=== PATIENT | female | born 1990 | race Caucasian/White ===

== ENCOUNTER → 2020-02-17 10:09 | Outpatient (BNVA) | payer OTHER, SELFPAY | PROVIDERS: PCP Internal Medicine; Referring Provider Internal Medicine; Visit Provider Internal Medicine | DX: Z76.89 Persons encountering health services in other specified circumstances (principal) ==

== ENCOUNTER → 2020-04-15 16:01 | Outpatient (BNV) | payer OTHER, SELFPAY | PROVIDERS: PCP Internal Medicine; Visit Provider Internal Medicine | DX: D72.819 Decreased white blood cell count, unspecified (principal) | CPT/HCPCS: 99213 ==

== ENCOUNTER 2020-07-28 15:44 | Outpatient (REF) | payer OTHER, SELFPAY ==
[2020-07-28 17:08] LABS: Free T4 (Free Thyroxine) 1.07 ng/dL (0.71-1.85); Thyroid Stimulating Hormone 0.13 uIU/mL (0.32-4.0); Vitamin D 25-OH Total 17.3 ng/mL (>30)
== END 2020-07-28 15:45 | disposition home or self-care (01) ==
LOC: HO.LAB 15:44
PROVIDERS: PCP Internal Medicine; Visit Provider Internal Medicine
DX: E03.9 Hypothyroidism, unspecified (principal); E55.9 Vitamin D deficiency, unspecified
CPT/HCPCS: 36415; 82306; 84439; 84443

== ENCOUNTER → 2020-10-19 15:20 | Outpatient (BNVA) | payer OTHER, SELFPAY | PROVIDERS: PCP Internal Medicine; Visit Provider Internal Medicine ==

== ENCOUNTER 2020-11-03 15:50 | Outpatient (REF) | payer OTHER, SELFPAY ==
[2020-11-03 17:27] LABS: Thyroid Stimulating Hormone 1.02 uIU/mL (0.32-4.0); Vitamin D 25-OH Total 40.7 ng/mL (>30)
== END 2020-11-03 15:51 | disposition home or self-care (01) ==
LOC: HO.LAB 15:50
PROVIDERS: PCP Internal Medicine; Visit Provider Internal Medicine
DX: E03.9 Hypothyroidism, unspecified (principal); E55.9 Vitamin D deficiency, unspecified
CPT/HCPCS: 36415; 82306; 84439; 84443

== ENCOUNTER 2020-12-30 09:49 | Outpatient (REF) | payer OTHER, SELFPAY ==
--- NOTE | ~2020-12-30 | XR_ITS ---
EXAMINATION: XR CHEST CLINICAL INFORMATION: Shortness of breath COMPARISON: Previous chest x-ray January 2015 TECHNIQUE: 2 views of the chest were obtained. FINDINGS: No significant abnormality is noted involving the heart, lungs, mediastinum, bony thorax or soft tissues. XR/XR chest 2V IMPRESSION: Unremarkable examination.
[2020-12-30 10:06] LABS: MANUAL DIFF FLAG NO
[2020-12-30 10:28] LABS: Basophils Percent Auto 0.5 % (0-2); Eosinophils Absolute Auto 0.1 X10*3/uL (0.0-0.4); Eosinophils Percent Auto 3.2 % (0-4); Hematocrit 35.9 % (37-47); Hemoglobin 12.3 g/dl (12.0-16.0); Imm Gran Abs Auto 0.01 X10*3/uL (0.00-0.03); Imm Gran Pct Auto 0.3 % (0.0-0.4); Lymphocytes Absolute Auto 1.5 X10*3/uL (1.2-4.9); Lymphocytes Percent Auto 38.6 % (20-40); Mean Corpuscular HGB Conc 34.3 g/dl (31.0-35.0); Mean Corpuscular Hemoglobin 31.9 pg (27.0-33.0); Mean Platelet Volume 10.1 fL (9.4-12.3); Monocytes Absolute Auto 0.3 X10*3/uL (0.1-1.2); Monocytes Percent Auto 7.7 % (2-11); Neutrophils Absolute Auto 1.9 X10*3/uL (2.0-8.3); Neutrophils Percent Auto 49.7 % (45-73); Platelet Count 289 X10*3/uL (160-400); Red Blood Count 3.86 X10*6/uL (4.20-5.50); Red Cell Distribution Width 11.9 % (11.0-16.0); White Blood Count 3.8 X10*3/uL (4.8-10.8)
[2020-12-30 11:09] LABS: Free T4 (Free Thyroxine) 1.16 ng/dL (0.71-1.85); Thyroid Stimulating Hormone 1.52 uIU/mL (0.32-4.0)
== END 2020-12-30 09:50 | disposition home or self-care (01) ==
LOC: HO.XRAY 09:49
PROVIDERS: Internal Medicine; PCP Internal Medicine; Visit Provider Internal Medicine
DX: R06.02 Shortness of breath (principal); E03.9 Hypothyroidism, unspecified; D64.9 Anemia, unspecified
CPT/HCPCS: 36415; 71046; 84439; 84443; 85025

== ENCOUNTER 2021-03-02 10:36 | Outpatient (REF) | payer OTHER, SELFPAY ==
[2021-03-02 13:12] LABS: Influenza A PCR NEGATIVE (Negative); Influenza B PCR NEGATIVE (Negative); Resp Syncy Virus RNA Qual PCR NEGATIVE (Negative); SARS COV2 PCR INHOUSE NEGATIVE (Negative)
== END 2021-03-02 10:37 | disposition home or self-care (01) ==
LOC: HO.LAB 10:36
PROVIDERS: Visit Provider Nurse Practitioner Family
DX: Z20.822 Contact with and (suspected) exposure to COVID-19 (principal); R53.83 Other fatigue
CPT/HCPCS: 0241U

== ENCOUNTER 2021-03-21 14:28 | Outpatient (REF) | payer OTHER, SELFPAY ==
[2021-03-21 15:23] LABS: COVID-19 Test Positive (Negative); IDNOW Serial# 16C4AD1C
== END 2021-03-21 14:29 | disposition home or self-care (01) ==
LOC: HO.LAB 14:28
PROVIDERS: Visit Provider Internal Medicine
DX: Z20.822 Contact with and (suspected) exposure to COVID-19 (principal)
CPT/HCPCS: 87635; C9803

== ENCOUNTER 2021-03-31 14:12 | Outpatient (REF) | payer OTHER, SELFPAY | END 2021-03-31 14:13 | disposition home or self-care (01) | LOC: HO.LAB 14:12 | PROVIDERS: Internal Medicine; Visit Provider Internal Medicine | DX: Z20.822 Contact with and (suspected) exposure to COVID-19 (principal) | CPT/HCPCS: U0003; U0005 ==

== ENCOUNTER 2021-03-31 14:37 | Outpatient (REF) | payer OTHER, SELFPAY ==
[2021-03-31 14:53] LABS: MANUAL DIFF FLAG NO
[2021-03-31 15:07] LABS: Basophils Percent Auto 0.5 % (0-2); Eosinophils Absolute Auto 0.1 X10*3/uL (0.0-0.4); Eosinophils Percent Auto 1.5 % (0-4); Hematocrit 37.2 % (37.0-47.0); Hemoglobin 12.6 g/dl (12.0-16.0); Imm Gran Abs Auto 0.03 X10*3/uL (0.00-0.03); Imm Gran Pct Auto 0.5 % (0.0-0.4); Lymphocytes Absolute Auto 1.5 X10*3/uL (1.2-4.9); Lymphocytes Percent Auto 25.6 % (20-40); Mean Corpuscular HGB Conc 33.9 g/dl (31.0-35.0); Mean Corpuscular Volume 94.4 fL (80.0-98.0); Mean Platelet Volume 9.9 fL (9.4-12.3); Monocytes Absolute Auto 0.4 X10*3/uL (0.1-1.2); Monocytes Percent Auto 6.5 % (2-11); Neutrophils Absolute Auto 3.9 x10*3/uL (2.0-8.3); Neutrophils Percent Auto 65.4 % (45-73); Platelet Count 256 X10*3/uL (160-400); Red Blood Count 3.94 X10*6/uL (4.20-5.50); Red Cell Distribution Width 11.9 % (11.0-16.0)
[2021-03-31 15:38] LABS: Alanine Aminotransferase 18 U/L (0-31); Albumin Level 4.1 g/dL (3.5-5.0); Alkaline Phosphatase 51 U/L (39-117); Anion Gap 10 (12-20); Aspartate Amino Transferase 17 U/L (5-31); Bilirubin Total 1.3 mg/dL (0.0-1.0); Blood Urea Nitrogen 15 mg/dL (9-16); Calcium 9.5 mg/dL (8.4-10.2); Carbon Dioxide 26 mmol/L (22-29); Chloride 106 mmol/L (96-108); Estimated Glomerular Filt Rate > 60; Glucose Random 79 mg/dL (60-115); Potassium 4.9 mmol/L (3.3-5.1); Sodium 137 mmol/L (135-145); Total Protein 7.1 g/dL (6.5-8.0)
[2021-03-31 16:01] LABS: Thyroid Stimulating Hormone 2.15 uIU/mL (0.32-4.0)
[2021-03-31 16:07] LABS: Folate 17.1 ng/mL (> or = 4.0); Vitamin B12 348 pg/mL (200-900)
[2021-04-05 17:51] LABS: Vitamin D 25-OH, D2 <4 ng/mL; Vitamin D 25-OH, D3 21 ng/mL; Vitamin D 25-OH, Total 21 ng/mL (30-100)
== END 2021-03-31 14:38 | disposition home or self-care (01) ==
LOC: HO.LAB 14:37
PROVIDERS: PCP Internal Medicine; Visit Provider Internal Medicine
DX: E55.9 Vitamin D deficiency, unspecified (principal); E03.9 Hypothyroidism, unspecified; E53.8 Deficiency of other specified B group vitamins; D64.9 Anemia, unspecified; R53.83 Other fatigue
CPT/HCPCS: 36415; 80053; 82306; 82607; 82746; 84443; 85025

== ENCOUNTER 2021-07-13 17:57 | Outpatient (REF) | payer OTHER, SELFPAY ==
[2021-07-13 18:56] LABS: Influenza A PCR NEGATIVE (Negative); Influenza B PCR NEGATIVE (Negative); Resp Syncy Virus RNA Qual PCR NEGATIVE (Negative); SARS COV2 PCR INHOUSE NEGATIVE (Negative)
== END 2021-07-13 17:58 | disposition home or self-care (01) ==
LOC: HO.LNP 17:57
PROVIDERS: Visit Provider Internal Medicine
DX: Z20.822 Contact with and (suspected) exposure to COVID-19 (principal); R05.9 Cough, unspecified; R09.89 Other specified symptoms and signs involving the circulatory and respiratory systems
CPT/HCPCS: 0241U

== ENCOUNTER 2021-08-14 23:18 | Emergency (ER) | payer OTHER, SELFPAY ==
--- NOTE | ~2021-08-14 | XR_ITS ---
EXAMINATION: XR HAND, RIGHT CLINICAL INFORMATION: Hand injury COMPARISON: None TECHNIQUE: PA, lateral, and oblique views of the right hand. FINDINGS: The bones and soft tissues are normal. No fracture. Alignment is anatomic. Joint spaces are maintained. No erosions or soft tissue calcifications. XR/XR hand RT min 3V IMPRESSION: Normal right hand.
[2021-08-14 23:25] VITALS: BP 109/65; PULSE 76; RESP 18; TEMP 37; O2SAT 98; BMI 28.4
--- NOTE | 2021-08-15 01:10 | ED.EXTPRO ---
HPI - Extremity Problem General Chief complaint: Extremity Injury, Upper Stated complaint: right hand inj Time Seen by Provider: 08/15/21 01:10 Source: patient Mode of arrival: ambulatory Limitations: no limitations History of Present Illness HPI Narrative: A window fell on her hand 4 hours ago Complaint: extremity pain Onset (ago): hour(s) Pain Consistency: constant Location: right Associated symptoms: denies other symptoms Related Data Previous Rx's Medication Instructions Recorded levothyroxine 88 mcg tablet 88 mcg PO DAILY 30 days #30 tabs 04/07/21 amoxicillin 875 mg tablet 875 mg PO BID 7 days #14 tabs 07/13/21 Allergies Allergy/AdvReac Type Severity Reaction Status Date / Time No Known Allergies Allergy Verified 07/13/21 14:14 [No Known Allergies*] Review of Systems Constitutional: Constitutional: Reports no additional constitutional complaints Eyes: Eyes: Reports no additional eye complaints ENT: Denies dizziness Cardiovascular: Cardiovascular: Reports no additional cardiovascular complaints Respiratory: Respiratory: Reports as per HPI Gastrointestinal: Gastrointestinal: Reports no additional gastrointestinal complaints Genitourinary: Genitourinary: Reports no additional female genitourinary complaints Musculoskeletal: Musculoskeletal: Reports no additional musculoskeletal complaints Integumentary/Breasts: Skin/Breast: Denies rash Neurologic: Reports system reviewed and no additional complaints, except as documented, Denies dizziness and Denies Sensory deficit (Neuro) Psychiatric: Psychiatric: Denies anxiety PMFSH Past Medical History Surgical History No pertinent past surgical history Family History Family History Father No problems noted. Mother Diabetes Depression Sister Gestational diabetes Social History Social History Household Members: Children Housing: Apartment Are you a primary care assistant to a significant other at home: No Do you presently have visiting nurse or other home services: No Alcohol intake: current Alcohol intake frequency: holidays/special occasions only Alcohol type: wine and other Patient Tobacco Use Status: Former Tobacco user Tobacco use type: Cigarette e-Cigarette/Vaping Use: Never Used Second Hand Smoke Exposure: No service: No Current occupational status: employed Current occupation: [employer] Current occupational exposures/hazards: No Cognitive needs: No Hearing needs: No Vision needs: No Physical Exam Vital Signs: Vital Signs: Last Vital Signs Temp 98.6 F 08/14/21 23:25 Pulse 76 08/14/21 23:25 Resp 18 08/14/21 23:25 BP 109/65 08/14/21 23:25 Pulse Ox 98 08/14/21 23:25 O2 Del Method 08/14/21 23:25 BMI result Body Mass Index 28.4 Const: General: healthy appearing Nutritional Appearance: average body habitus Orientation/consciousness: oriented to person and patient oriented x3 Limitations: no limitations HEENT: Head: Yes normal to inspection Ears: external ears normal General nose exam: Normal external nose present Mouth: Normal oral and palatal mucosa present and oropharynx normal Throat: Yes posterior oropharynx normal Eyes: General: appearance normal, both eyes and all related structures Neck: Other: supple Neck: Yes normal visual inspection Chest: Chest palpation & inspection: normal inspection of the chest Resp: Auscultation: clear to auscultation bilaterally Cardio: Jugular venous distension: no JVD Rate: regular rate Rhythm: regular rhythm Heart sounds: S1 normal heart sound present and S2 normal heart sound present GI: Inspection: Yes normal to inspection Palpation (GI): Soft to palpation, nontender and No hepatosplenomegaly present Auscultation: normal bowel sounds : General: Yes no CVA tenderness Back/Spine/Pelvis: Back: no CVA tenderness Skin: General skin exam: no rashes or lesions noted Neuro: General: oriented to person and patient oriented x3 Cranial nerves: Yes CN's II-XII intact bilaterally Motor exam (neuro): 5/5 motor strength present throughout Sensory Exam: No Sensory deficit (Neuro) Extrem: Other: right hand with ecchymosis across Mcp, and 5th digit with ecchymosis and swelling Psych: Appearance: grossly normal Course Reevaluation(s) Reevaluation #1: short arm splint and sling applied Time: 01:25 MDM - Extremity (Nontraumatic) Imaging Data hand: Radiologist's impression: FINDINGS: The bones and soft tissues are normal. No fracture. Alignment is anatomic. Joint spaces are maintained. No erosions or soft tissue calcifications.? XR/XR hand RT min 3V IMPRESSION: Normal right hand. Discharge Plan Discharge Clinical Impression: Contusion of hand Patient Disposition: Home, Self-Care Instructions: Contusion in Adults (ED) Additional Instructions: ice 20 minutes off and on, tylenol and motrin for pain Prescriptions: No Action levothyroxine 88 mcg tablet 88 mcg PO DAILY 30 Days Qty: 30 3RF amoxicillin 875 mg tablet 875 mg PO BID 7 Days Qty: 14 0RF Referrals: Physician,Unknown J [Primary Care Provider] - 1 week Stand Alone Forms: Work/School Release
== END 2021-08-15 02:14 | disposition home or self-care (01) ==
PROVIDERS: Emergency Provider Emergency Medicine
DX: S60.221A Contusion of right hand, initial encounter (principal); W20.8XXA Other cause of strike by thrown, projected or falling object, initial encounter; Y93.89 Activity, other specified; Y92.019 Unspecified place in single-family (private) house as the place of occurrence of the external cause; Y99.9 Unspecified external cause status
CPT/HCPCS: 29125; 73130; 99283

== ENCOUNTER 2021-10-03 08:48 | Outpatient (REF) | payer OTHER, SELFPAY ==
[2021-10-03 10:40] LABS: Thyroid Stimulating Hormone 18.66 uIU/mL (0.32-4.0)
== END 2021-10-03 08:49 | disposition home or self-care (01) ==
LOC: HO.LAB 08:48
PROVIDERS: PCP Internal Medicine; Visit Provider Internal Medicine
DX: E03.9 Hypothyroidism, unspecified (principal)
CPT/HCPCS: 36415; 84443

== ENCOUNTER 2021-11-20 14:20 | Outpatient (REF) | payer OTHER, SELFPAY ==
[2021-11-20 15:11] LABS: MANUAL DIFF FLAG NO
[2021-11-20 15:31] LABS: Basophils Percent Auto 0.7 % (0-2); Eosinophils Absolute Auto 0.2 X10*3/uL (0.0-0.4); Hematocrit 36.8 % (37.0-47.0); Hemoglobin 12.4 g/dl (12.0-16.0); Imm Gran Abs Auto 0.02 X10*3/uL (0.00-0.03); Imm Gran Pct Auto 0.4 % (0.0-0.4); Lymphocytes Absolute Auto 1.2 X10*3/uL (1.2-4.9); Lymphocytes Percent Auto 26.7 % (20-40); Mean Corpuscular HGB Conc 33.7 g/dl (31.0-35.0); Mean Corpuscular Hemoglobin 32.3 pg (27.0-33.0); Mean Corpuscular Volume 95.8 fL (80.0-98.0); Mean Platelet Volume 10.2 fL (9.4-12.3); Monocytes Absolute Auto 0.3 X10*3/uL (0.1-1.2); Monocytes Percent Auto 5.9 % (2-11); Neutrophils Absolute Auto 2.8 x10*3/uL (2.0-8.3); Neutrophils Percent Auto 61.3 % (45-73); Platelet Count 266 X10*3/uL (160-400); Red Blood Count 3.84 X10*6/uL (4.20-5.50); White Blood Count 4.6 X10*3/uL (4.8-10.8)
== END 2021-11-20 14:21 | disposition home or self-care (01) ==
LOC: HO.LAB 14:20
PROVIDERS: PCP Internal Medicine; Visit Provider Internal Medicine Pulmonary Disease
DX: Z91.09 Other allergy status, other than to drugs and biological substances (principal); J45.909 Unspecified asthma, uncomplicated
CPT/HCPCS: 36415; 82785; 85025; 86003; 99202

== ENCOUNTER 2022-03-23 14:07 | Outpatient (REF) | payer OTHER, SELFPAY ==
[2022-03-24 04:31] LABS: CT PCR NOT DETECTED (Not Detect.); NG PCR NOT DETECTED (Not Detect.)
[2022-03-24 08:58] LABS: HBsAGNum1 0.27 S/CO (0.00-0.99); Hepatitis B Surface Antigen Negative (Negative); ~HepC Num1 0.07 S/CO (0.00-0.79); ~Hepatitis C Antibody Nonreactive (Nonreactive)
[2022-03-24 09:06] LABS: Syphilis Screen Nonreactive (Nonreactive)
[2022-03-24 09:42] LABS: HIV AB/AG Nonreactive (Nonreactive); HIV Num 1 0.06 S/CO (0.00-0.99)
[2022-03-24 13:31] LABS: BV Int Neg Control Negative (Negative); BV Int Pos Control Positive (Positive)
== END 2022-03-23 14:08 | disposition home or self-care (01) ==
LOC: HO.LAB 14:07
PROVIDERS: PCP Internal Medicine; Visit Provider Advanced Practice Midwife
DX: Z11.3 Encounter for screening for infections with a predominantly sexual mode of transmission (principal); Z87.42 Personal history of other diseases of the female genital tract; Z79.899 Other long term (current) drug therapy
CPT/HCPCS: 0353U; 36415; 86780; 86803; 87340; 87389; 87480; 87510; 87660

== ENCOUNTER 2022-03-23 15:07 | Outpatient (REF) | payer OTHER, SELFPAY ==
[2022-03-30 05:13] LABS: HPV mRNA E6/E7 rflx Not Detected (Not Detected)
== END 2022-03-23 15:08 | disposition home or self-care (01) ==
LOC: HO.LNP 15:07
PROVIDERS: Visit Provider Advanced Practice Midwife
DX: Z01.419 Encounter for gynecological examination (general) (routine) without abnormal findings (principal); Z11.3 Encounter for screening for infections with a predominantly sexual mode of transmission; Z87.42 Personal history of other diseases of the female genital tract
CPT/HCPCS: 87624; 88142

== ENCOUNTER 2022-03-30 11:09 | Outpatient (REF) | payer OTHER, SELFPAY ==
--- NOTE | 2022-03-30 12:08 | PFT_ITS ---
INDICATION: Dyspnea. SPIROMETRY: FEV1 to FVC of 82% with an FEV1 of 3.32 L, which is 118% predicted and FVC of 4.02 L which is 121% predicted. No significant response to bronchodilators noted. Maximum voluntary ventilation 116% predicted. LUNG VOLUMES: Total lung capacity 110% predicted with a residual volume of 77% predicted. DIFFUSION CAPACITY: DLCO of 114% predicted. Flow volume loop completely normal. INTERPRETATION: No obstructive nor restrictive ventilatory defects identified. No significant response to bronchodilators noted. Normal maximum voluntary ventilation. Lung volumes and diffusion capacity also within normal limits. It appears to demonstrate normal pulmonary mechanics. No clear explanation for the patient's symptoms of dyspnea based on this PFT. Shayne Barfield MD MR/MODL / [id number]
== END 2022-03-30 11:10 | disposition home or self-care (01) ==
LOC: HO.RESP 11:09
PROVIDERS: PCP Internal Medicine; Visit Provider Internal Medicine Pulmonary Disease
DX: J45.909 Unspecified asthma, uncomplicated (principal)
CPT/HCPCS: 94060; 94727; 94729

== ENCOUNTER → 2022-04-17 15:44 | Outpatient (BNVA) | payer OTHER, SELFPAY | PROVIDERS: PCP Internal Medicine; Visit Provider Internal Medicine Pulmonary Disease | DX: J45.909 Unspecified asthma, uncomplicated (principal); Z91.09 Other allergy status, other than to drugs and biological substances; Z79.899 Other long term (current) drug therapy | CPT/HCPCS: 99212 ==

== ENCOUNTER 2022-06-28 09:31 | Outpatient (REF) | payer OTHER, SELFPAY ==
[2022-06-28 15:01] LABS: Influenza A PCR NEGATIVE (Negative); Influenza B PCR NEGATIVE (Negative); Resp Syncy Virus RNA Qual PCR NEGATIVE (Negative); SARS COV2 PCR INHOUSE NEGATIVE (Negative)
== END 2022-06-28 09:32 | disposition home or self-care (01) ==
LOC: HO.LAB 09:31
PROVIDERS: Visit Provider Internal Medicine
DX: R09.89 Other specified symptoms and signs involving the circulatory and respiratory systems (principal); Z20.822 Contact with and (suspected) exposure to COVID-19
CPT/HCPCS: 0241U

== ENCOUNTER 2022-08-03 07:37 | Outpatient (REF) | payer OTHER, SELFPAY ==
[2022-08-03 10:14] LABS: Vitamin B12 464 pg/mL (200-900); Vitamin D 25-OH Total 14.7 ng/mL (>30)
[2022-08-03 10:15] LABS: Thyroid Stimulating Hormone > 100.00 uIU/mL (0.32-4.0)
== END 2022-08-03 07:38 | disposition home or self-care (01) ==
LOC: HO.LAB 07:37
PROVIDERS: PCP Internal Medicine; Visit Provider Internal Medicine
DX: E03.9 Hypothyroidism, unspecified (principal)
CPT/HCPCS: 36415; 82306; 82607; 82746; 84443

== ENCOUNTER 2022-10-14 00:46 | Emergency (ER) | payer OTHER, SELFPAY ==
[2022-10-14 00:56] VITALS: BP 117/76; PULSE 79; RESP 17; TEMP 36.6; O2SAT 98; BMI 35.2
[2022-10-14 01:59] LABS: MANUAL DIFF FLAG NO
[2022-10-14 02:00] LABS: Basophils Percent Auto 0.7 % (0-2); Eosinophils Absolute Auto 0.2 X10*3/uL (0.0-0.4); Eosinophils Percent Auto 3.8 % (0-4); Hematocrit 35.3 % (37.0-47.0); Imm Gran Abs Auto 0.03 X10*3/uL (0.00-0.03); Imm Gran Pct Auto 0.5 % (0.0-0.4); Lymphocytes Absolute Auto 1.8 X10*3/uL (1.2-4.9); Lymphocytes Percent Auto 31.1 % (20-40); Mean Corpuscular Hemoglobin 32.7 pg (27.0-33.0); Mean Corpuscular Volume 96.2 fL (80.0-98.0); Monocytes Absolute Auto 0.4 X10*3/uL (0.1-1.2); Monocytes Percent Auto 7.1 % (2-11); Neutrophils Absolute Auto 3.3 x10*3/uL (2.0-8.3); Neutrophils Percent Auto 56.8 % (45-73); Platelet Count 287 X10*3/uL (160-400); Red Blood Count 3.67 X10*6/uL (4.20-5.50); Red Cell Distribution Width 11.9 % (11.0-16.0); White Blood Count 5.8 X10*3/uL (4.8-10.8)
[2022-10-14 02:13] LABS: Alanine Aminotransferase 15 U/L (0-31); Albumin Level 3.7 g/dL (3.5-5.0); Alkaline Phosphatase 53 U/L (39-117); Anion Gap 13 (12-20); Aspartate Amino Transferase 15 U/L (5-31); Bilirubin Total 0.4 mg/dL (0.0-1.0); Blood Urea Nitrogen 15 mg/dL (9-16); Calcium 8.8 mg/dL (8.4-10.2); Carbon Dioxide 20 mmol/L (22-29); Chloride 111 mmol/L (96-108); Creatinine Clr Calc Pharmacy 118.7; Estimated Glomerular Filt Rate > 60; Glucose Random 89 mg/dL (60-115); Sodium 140 mmol/L (135-145); Total Protein 6.6 g/dL (6.5-8.0)
--- NOTE | 2022-10-14 06:30 | ED.GENADULT ---
HPI - General Adult General Chief complaint: General Medical Stated complaint: arm numbness Time Seen by Provider: 10/14/22 06:30 Source: patient Mode of arrival: ambulatory Limitations: no limitations History of Present Illness HPI narrative: 32 yo female with history of asthma, restless leg syndrome, environmental allergies who presents to the ER for evaluation of acute onset of left forearm pain that started when she woke up from a nap around 9:30 last night. She states the pain came on gradually, continued to worsen and radiate proximally to the upper arm. She then developed pain in the right arm and forearm as well. She states the pain continues to worsen in her bilateral arms and started to develop numbness and some swelling in the left forearm and right hand. She came to the hospital just after midnight for evaluation. She states since arriving to the ER the pain and numbness have improved but not resolved. 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 She has never had pain or numbness in her arms like this before. She denies any LE pains, chest pain, N/V/D, abdominal pain, fever, chills, rashes. She continues to have pain with movement of her arms and they are tender to touch. MD complaint: bilateral arm pain and numbness Onset (ago): hour(s) Location: left, right and upper extremity Radiation: proximal Severity: severe Quality: sharp Pain Consistency: other (improving) Relieving factors: rest Exacerbating factors: movement Associated symptoms: denies other symptoms Treatments prior to arrival: none Related Data Previous Rx's Medication Instructions Recorded cholecalciferol (vitamin D3) 50 50 mcg PO DAILY 90 days #90 caps 08/16/22 mcg (2,000 unit) capsule levothyroxine 88 mcg tablet 88 mcg PO DAILY 90 days #90 tabs 08/16/22 valacyclovir 1 gram tablet 1,000 mg PO Q8H 7 days #21 tabs 09/05/22 cyclobenzaprine 10 mg tablet 10 mg PO TID PRN muscle spasm #14 10/14/22 tabs naproxen 500 mg tablet 500 mg PO BID PRN pain #20 tabs 10/14/22 Allergies Allergy/AdvReac Type Severity Reaction Status Date / Time No Known Allergies Allergy Verified 10/14/22 00:56 [No Known Allergies*] Review of Systems Review of Systems: Yes all other systems are reviewed and are negative [facility] Past Medical History Medical History COVID-19 Hypothyroidism Nausea Restless leg syndrome Shortness of breath Vitamin B 12 deficiency Vitamin D deficiency Surgical History No pertinent past surgical history Family History Family History Father No problems noted. Mother Diabetes Depression Sister Gestational diabetes Maternal Grandmother Colon cancer Maternal Grandfather Colon cancer Social History Social History Household Members: Children Housing: Apartment Are you a primary adult daycare coordinator to a significant other at home: No Do you presently have visiting nurse or other home services: No Alcohol intake: current Alcohol intake frequency: holidays/special occasions only Alcohol type: wine and other Patient Tobacco Use Status: Former Tobacco user Tobacco use type: Cigarette e-Cigarette/Vaping Use: Never Used Second Hand Smoke Exposure: No Advance Directives: No Advance Directives Information Provided: No service: No Current occupational status: employed Current occupation: [employer] Current occupational exposures/hazards: No Cognitive needs: No Hearing needs: No Vision needs: Yes Physical Exam ED Vital Signs: Vital Signs - 24 hr 10/14/22 00:56 Temperature 97.8 F Pulse Rate 79 Respiratory Rate 17 Blood Pressure 117/76 Pulse Oximetry 98 Oxygen Delivery Method Room Air BMI result Body Mass Index 35.2 Appearance: Alert. Oriented X3. No acute distress. Head: normocephalic, atraumatic. Eyes: Pupils equal, round and reactive to light. ENT: Pharynx normal. No tonsillar swelling or exudate. Neck: Normal inspection. Neck supple. CVS: Normal heart rate and rhythm. Pulses normal. Respiratory: No respiratory distress. Breath sounds normal. Abdomen: Soft and nontender. +BS x4 Skin: Skin warm and dry. Normal skin color. Normal skin turgor. No rashes. Extremities: No lower extremity edema. No joint swelling. Normal inspection of bilateral upper extremities, soft tissue tenderness of the bilateral forearms and upper arms. no notable swelling or skin changes. compartments are soft and compressible throughout. NV intact distally. equal hand grasp bilaterally. pain with passive and active ROM of the shoulder and elbows. Neuro/psych: Oriented X 3. No motor deficit. No sensory deficit. CN II-XII intact. Normal speech and cognition. 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 The pain and numbness have improved but not completely resolved. Her physical exam is revealing for soft tissue tenderness, no sensory deficits or motor deficits. Her lab workup is unremarkable. Normal CPK. Normal electrolytes. Suspect her pain and symptoms are due to overuse injury, perhaps some transient swelling in the muscles compressing the nerves causing the numbness. Neurologically nonfocal at this time. She was given NSAID and muscle relaxer. At this time she is stable for discharge home with rest, NSAIDs, muscle relaxers. She will follow-up with her primary care doctor as needed. Return precautions discussed. Stable for discharge home Differential Diagnosis Differential Diagnoses: The differential diagnosis associated with the presentation includes muscle strain/spasm, overuse injury, rhabdomyolysis, myositis, cervical radiculopathy Lab Data [facility] Lab Attestation statement: I reviewed the patient's lab results. no signficant metabolic derrangement, lytes normal 10/14/22 01:54 10/14/22 01:54 Labs: Lab Results 10/14/22 10/14/22 Range/Units 01:54 01:54 WBC 5.8 (4.8-10.8) X10*3/uL RBC 3.67 L (4.20-5.50) X10*6/uL Hgb 12.0 (12.0-16.0) g/dl Hct 35.3 L (37.0-47.0) % MCV 96.2 (80.0-98.0) fL MCH 32.7 (27.0-33.0) pg MCHC 34.0 (31.0-35.0) g/dl RDW 11.9 (11.0-16.0) % Plt Count 287 (160-400) X10*3/uL MPV 10.0 (9.4-12.3) fL Immature Gran % (Auto) 0.5 H (0.0-0.4) % Neut % (Auto) 56.8 (45-73) % Lymph % (Auto) 31.1 (20-40) % Antelope % (Auto) 7.1 (2-11) % Eos % (Auto) 3.8 (0-4) % Baso % (Auto) 0.7 (0-2) % Lymph # (Auto) 1.8 (1.2-4.9) X10*3/uL Antelope # (Auto) 0.4 (0.1-1.2) X10*3/uL Eos # (Auto) 0.2 (0.0-0.4) X10*3/uL Baso # (Auto) 0.0 (0.0-0.2) X10*3/uL Abs Immat Gran (auto) 0.03 (0.00-0.03) X10*3/uL Absolute Neuts (auto) 3.3 (2.0-8.3) x10*3/uL Absolute Nucleated RBC 0.000 (0.0-0.012) X10*3/uL Nucleated RBC % (auto) 0.0 (0.0-0.2) /100WBC Sodium 140 (135-145) mmol/L Potassium 4.0 (3.3-5.1) mmol/L Chloride 111 H (96-108) mmol/L Carbon Dioxide 20 L (22-29) mmol/L Anion Gap 13 (12-20) BUN 15 (9-16) mg/dL Creatinine 0.65 (0.5-1.4) mg/dL Estim Creat Clear Calc 118.7 Estimated GFR > 60 Random Glucose 89 (60-115) mg/dL Calcium 8.8 D (8.4-10.2) mg/dL Total Bilirubin 0.4 (0.0-1.0) mg/dL AST 15 (5-31) U/L ALT 15 (0-31) U/L Alkaline Phosphatase 53 (39-117) U/L Total Creatine Kinase 102 (26-140) U/L Total Protein 6.6 (6.5-8.0) g/dL Albumin 3.7 (3.5-5.0) g/dL External Record Review External record reviewed: Prior outpatient labs Tests considered The following testing was considered but not selected: Considered imaging today however given physical exam findings is deferred for now Prescription Management I considered prescription management with: Pain Medication Critical Care Time Critical Care Time Critical Care Time: No Discharge Plan Discharge Clinical Impression: Myalgia Patient Disposition: Home, Self-Care Instructions: Musculoskeletal Pain (ED) Additional Instructions: Your lab workup today was reassuring. Your pain is most likely muscular from overuse and rowing Recommend rest, no strenuous activity. Use ice or heat (which ever feels better) and elevate when possible Take the prescribed anti-inflammatories and muscle relaxers as directed Stay hydrated No rowing until all of your symptoms are completely resolved. If you develop new or worsening symptoms call 911 or come back to the ER for further evaluation. Prescriptions: New cyclobenzaprine 10 mg tablet 10 mg PO TID PRN (Reason: muscle spasm) Qty: 14 0RF naproxen 500 mg tablet 500 mg PO BID PRN (Reason: pain) Qty: 20 0RF No Action valacyclovir 1 gram tablet 1,000 mg PO Q8H 7 Days Qty: 21 0RF levothyroxine 88 mcg tablet 88 mcg PO DAILY 90 Days Qty: 90 0RF cholecalciferol (vitamin D3) 50 mcg (2,000 unit) capsule 50 mcg PO DAILY 90 Days Qty: 90 0RF Referrals: Melody Rowan MD [Primary Care Provider] - Stand Alone Forms: Work/School Release
[2022-10-14] MEDS: Ibuprofen 600 MG TABLET PO (07:08)
[2022-10-14] MEDS: Cyclobenzaprine HCl 10 MG TABLET PO (07:08)
== END 2022-10-14 07:32 | disposition home or self-care (01) ==
PROVIDERS: Physician Assistant; Emergency Provider Emergency Medicine Emergency Medical Services; PCP Internal Medicine
DX: M79.10 Myalgia, unspecified site (principal); M79.602 Pain in left arm; M79.601 Pain in right arm; R20.0 Anesthesia of skin; Z87.891 Personal history of nicotine dependence; Z79.899 Other long term (current) drug therapy
CPT/HCPCS: 36415; 80053; 82550; 85025; 99283

== ENCOUNTER 2022-11-01 15:22 | Outpatient (AMB) | payer OTHER, SELFPAY ==
--- NOTE | 2022-11-01 15:24 | A.OFFVIS_ITS ---
Intake Vital Signs 11/01/22 15:25 Height 5 ft Weight 186 lb 8.177 oz BMI 36.4 BP 102/62 Blood Pressure Location Rt brachial Position Sitting Pulse 83 Pulse Source Pulse Oximeter Intake Visit Reasons: hypothyroidism/ Intake Note: Patient present today for Hypothyroidism office visit. Prior Dr. 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 First diagnosed with Hypothyroidism many years ago. Did have labs completed 08/19/17 with TSH 60.87 with TGAb positive at 25 and TPO antibodies positive at 291. She was started on thyroid hormone Levothyroxine 150 mcg PO daily. Since beginning the medication her labs have fluctuated drastically due to poor compliance. After our initial visit she began taking the medication daily, first thing in the morning on an empty stomach. Labs were repeated 6 weeks later with TSH suppressed to 0.01. Her dose was then decreased to 112 mcg PO daily. Labs were repeated and TSH was relatively unchanged at 0.02. Her dose was then decreased to 100 mcg PO daily, and further to 88 mcg daily, which she remains on now. She has been noncompliant with levothyroxine She did not have her labs repeated. Biotin Does use Biotin almost daily. Stops Biotin for at least 1 week prior to lab draws. No recent pertinent labs. [facility] Medical History COVID-19 Hypothyroidism Nausea Restless leg syndrome Shortness of breath Vitamin B 12 deficiency Vitamin D deficiency Surgical History No pertinent past surgical history Family History Father No problems noted. Mother Diabetes Depression Sister Gestational diabetes Maternal Grandmother Colon cancer Maternal Grandfather Colon cancer Social History Household Members: Children Housing: Apartment Are you a primary mall plant caretaker to a significant other at home: No Do you presently have visiting nurse or other home services: No Alcohol intake: current Alcohol intake frequency: holidays/special occasions only Alcohol type: wine and other Patient Tobacco Use Status: Former Tobacco user Tobacco use type: Cigarette e-Cigarette/Vaping Use: Never Used Second Hand Smoke Exposure: No service: No Current occupational status: employed Current occupation: [employer] Current occupational exposures/hazards: No Cognitive needs: No Hearing needs: No Vision needs: Yes Female Reproductive History Menstrual Age of Menarche: 14 Physical Exam Vital Signs: Last Vital Signs Pulse 83 11/01/22 15:25 BP 102/62 11/01/22 15:25 BMI result Body Mass Index 36.4 Assessment & Plan Assessment & Plan (1) Hypothyroidism: Code(s): E03.9 - Hypothyroidism, unspecified Qualifiers: Hypothyroidism type: acquired Qualified Code(s): E03.9 - Hypothyroidism, unspecified Plan: This is a 32-year-old female with a history of hypothyroidism being treated with 80 mcg levothyroxine found recently to have a very elevated TSH.Has been noncompliant with levothyroxine Plan is to stressed compliance with levothyroxine and switch levothyroxine to branded Synthroid 88 mcg q.d. at patient's request. Recheck TSH and free T4 in 6 weeks time adjust Synthroid accordingly Orders: Orders Free T4 (Free Thyroxine) 6 Weeks E03.9 - Hypothyroidism, unspecified Thyroid Stimulating Hormone 6 Weeks E03.9 - Hypothyroidism, unspecified Medications: New Synthroid (levothyroxine) 88 mcg PO DAILY 30 tabs 5RF NS Discontinued levothyroxine Discontinued Reason: Doctor's Order 88 mcg PO DAILY 90 days 90 tabs 0RF E03.9 - Hypothyroidism, unspecified Coding Level of Care Code Est Pt Level 3 (57556) Diagnoses Hypothyroidism E03.9 Hypothyroidism type: acquired
[2022-11-01 15:25] VITALS: BP 102/62; PULSE 83; BMI 36.4
== END 2022-11-01 15:52 | disposition home or self-care (01) ==
PROVIDERS: PCP Internal Medicine; Visit Provider Internal Medicine Endocrinology, Diabetes & Metabolism
DX: E03.9 Hypothyroidism, unspecified (principal)
CPT/HCPCS: 99213

== ENCOUNTER → 2022-11-01 15:22 | Outpatient (BNVA) | payer OTHER, SELFPAY | PROVIDERS: PCP Internal Medicine; Visit Provider Internal Medicine Endocrinology, Diabetes & Metabolism | DX: E03.9 Hypothyroidism, unspecified (principal); Z79.899 Other long term (current) drug therapy | CPT/HCPCS: 99212 ==

== ENCOUNTER 2022-12-24 06:29 | Outpatient (REF) | payer OTHER, SELFPAY ==
[2022-12-24 08:10] LABS: TSH reflex Free T4 9.13 uIU/mL (0.32-4.0)
[2022-12-24 08:11] LABS: Free T4 (Free Thyroxine) 0.79 ng/dL (0.71-1.85); Thyroid Stimulating Hormone 8.99 uIU/mL (0.32-4.0)
== END 2022-12-24 06:30 | disposition home or self-care (01) ==
LOC: HO.LAB 06:29
PROVIDERS: Absent Provider Nurse Practitioner Family; PCP Internal Medicine; Visit Provider Internal Medicine Endocrinology, Diabetes & Metabolism
DX: E03.9 Hypothyroidism, unspecified (principal); E55.9 Vitamin D deficiency, unspecified
CPT/HCPCS: 36415; 82306; 84439; 84443

== ENCOUNTER 2023-01-28 08:32 | Emergency (ER) | payer OTHER, SELFPAY ==
[2023-01-28 08:43] VITALS: BP 97/66; PULSE 86; RESP 14; TEMP 37.4; O2SAT 98; BMI 35.7
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
[2023-01-28] MEDS: Cyclobenzaprine HCl 5 MG TABLET PO (10:08)
[2023-01-28] MEDS: Ketorolac Tromethamine 15 MG/ML VIAL IM (10:08)
== END 2023-01-28 10:10 | disposition home or self-care (01) ==
PROVIDERS: Emergency Provider Emergency Medicine; PCP Internal Medicine
DX: Z04.1 Encounter for examination and observation following transport accident (principal); R51.9 Headache, unspecified; M54.50 Low back pain, unspecified; M79.651 Pain in right thigh
CPT/HCPCS: 96372; 99283; 99284; J1885

== ENCOUNTER 2023-01-30 14:26 | Outpatient (AMB) | payer OTHER, SELFPAY ==
--- NOTE | 2023-01-30 14:27 | MHC.PC.OV ---
Vital Signs 01/30/23 14:28 Height 5 ft Weight 189 lb BMI 36.9 BP 110/78 Blood Pressure Location Lt brachial Position Sitting Intake Visit Reasons: PE Intake Note: Patient here for a physical exam Sports Analyst Required: No Accompanied by: Self / Same As Patient Allergies No Known Allergies [No Known Allergies*] Allergy (Verified 01/30/23 14:45) Medication List - Last Reconciled 01/30/23 by Melody Carrizales MD cholecalciferol (vitamin D3) 50 mcg PO DAILY cyclobenzaprine 5 mg PO TID PRN 7 days Synthroid (levothyroxine) 100 mcg PO DAILY NS Tobacco use date assessed: 08/16/22 Dental Screening Dental Screen Date: 01/30/23 Did you have a dental visit in the last 12 months?: No Did you have a dental problem in the last 6 months where you did not have access to dental care?: No Was dental information given to patient?: Patient has dentist HPI HPI Comments History of Present Illness Details This is a 32-year-old female that comes for her physical exam. Last Pap smear was 2022 and was normal. No chest pain or shortness of breath. Labs were ordered. [facility] Medical History Hx of abnormal cervical Pap smear Screen for sexually transmitted diseases Well woman exam with routine gynecological exam Cervical cancer screening Obesity (BMI 30.0-34.9) Adult general medical exam Injury of right hand Right hand pain Chills Myalgia Sinus pain Chest congestion Cough Vomiting Fatigue COVID-19 Nausea Restless leg syndrome Shortness of breath Vitamin D deficiency Hypothyroidism Vitamin B 12 deficiency Surgical History No pertinent past surgical history Family History Father Essential hypertension Mother Diabetes Depression Sister Gestational diabetes Maternal Grandmother Colon cancer Maternal Grandfather Colon cancer Maternal Aunt Breast cancer Social History Household Members: Children Housing: Apartment Are you a primary intensive care unit registered nurse to a significant other at home: No Do you presently have visiting nurse or other home services: No Alcohol intake: current Alcohol intake frequency: holidays/special occasions only Alcohol type: wine and other Patient Tobacco Use Status: Former Tobacco user Tobacco use type: Cigarette e-Cigarette/Vaping Use: Never Used Second Hand Smoke Exposure: No service: No Current occupational status: employed Current occupation: [employer] Current occupational exposures/hazards: No Cognitive needs: No Hearing needs: No Vision needs: Yes Female Reproductive History Menstrual Age of Menarche: 14 Questionnaire Thrive Questionnaire Date Thrive assessed: 08/16/22 KATIE-7 AMB Questionnaire KATIE-7 Date KATIE - 7 assessed: 08/16/22 Source: Developed by Drs. Alex Johnson, Hanh Clark, Marcus Pedro and colleagues, with an educational liborio from [employer]. Review of Systems Const All systems reviewed & are unremarkable except as noted in HPI and below Eyes Reports no additional complaints, Denies change in vision and Denies other visual disturbances Card Denies chest pain at rest, Denies chest pain with activity, Denies edema, Denies irregular heart rhythm, Denies claudication, Denies dyspnea, Denies dyspnea on exertion, Denies orthopnea, Denies paroxysmal nocturnal dyspnea and Denies slow heart rate Resp Denies cough, Denies dyspnea and Denies dyspnea on exertion GI Denies abdominal pain, Denies change in bowel habits, Denies excessive flatus, Denies nausea and Denies vomiting Denies urinary incontinence, Denies urinary hesitancy and Denies urinary urgency Musc Denies abnormal gait, Denies atrophy, Denies deformity and Denies limited range of motion Skin/Breast Denies bleeding lesions, Denies changing lesions and Denies rash Neuro Denies abnormal gait and Denies lack of coordination Physical exam (Primary Care) Vital Signs: Last Vital Signs BP 110/78 01/30/23 14:28 BMI result Body Mass Index 36.9 Tobacco/Smoking Status: Tobacco use Status Tobacco use date assessed 08/16/22 01/30/23 14:29 Patient Tobacco Use Status Former Tobacco user 01/30/23 14:29 Tobacco use type Cigarette 01/30/23 14:29 e-Cigarette/Vaping Use Never Used 01/30/23 14:29 Thrive Assessment: Date of Thrive Assessment Date Thrive assessed 08/16/22 01/30/23 14:29 Const Orientation/consciousness: patient oriented x3 HENMT Head: Yes normal to inspection, Yes normocephalic and Yes atraumatic Ears: external ears normal Eyes General: appearance normal, both eyes and all related structures Eyelids: Yes eyelids normal Conjunctivae: conjunctivae normal Neck Neck: Yes normal visual inspection and Yes supple Resp Effort & Inspection: normal respiratory effort Auscultation: clear to auscultation bilaterally Cardio Jugular venous distension: no JVD Rate: regular rate Rhythm: regular rhythm Heart sounds: S1 normal heart sound present and S2 normal heart sound present GI Inspection: Yes normal to inspection Palpation (GI): Soft to palpation and nontender Auscultation: normal bowel sounds Skin General skin exam: no rashes or lesions noted Neuro General: patient oriented x3 and no focal motor deficits Extrem General: Yes full ROM Psych Appearance: grossly normal Office Procedures Flu Questionnaire Does the patient have a severe egg allergy?: No Immunizations flu vacc [id number] 6mos up(PF) 60 mcg(15 mcgx4)/0.5 mL IM syringe Performing Provider: Melody Carrizales MD [facility] Documented (not given) by: RAMÓN Rinaldi on 01/30/23 14:57 Reason Not Given: Not Given Assessment and Plan Assessment & Plan (1) Physical exam: Code(s): Z00.00 - Encounter for general adult medical examination without abnormal findings Plan: Repeat in a year. Orders: Orders Comprehensive [place]. Panel Fast Today Z00.00 - Encounter for general adult medical examination without abnormal findings Lipid Panel Today Z00.00 - Encounter for general adult medical examination without abnormal findings Influenza [id number] Immunization Today Z23 - Encounter for immunization Vitamin D 25-OH Total Today E55.9 - Vitamin D deficiency, unspecified Referrals Speech and Hearing Referral H91.90 - Unspecified hearing loss, unspecified ear Ophthalmology Referral H53.8 - Other visual disturbances Coding Level of Care Code Est Pt Prev Care 18-39y(92478) Diagnoses Physical exam Z00.00 Time Spent (min) 32
[2023-01-30 14:28] VITALS: BP 110/78; BMI 36.9
== END 2023-01-30 14:54 | disposition home or self-care (01) ==
PROVIDERS: Visit Provider Internal Medicine
DX: Z00.00 Encounter for general adult medical examination without abnormal findings (principal)
CPT/HCPCS: 99395

== ENCOUNTER 2023-02-22 07:18 | Outpatient (REF) | payer OTHER, SELFPAY ==
[2023-02-22 09:36] LABS: Alanine Aminotransferase 18 U/L (0-31); Albumin Level 3.7 g/dL (3.5-5.0); Alkaline Phosphatase 59 U/L (39-117); Anion Gap 10 (12-20); Aspartate Amino Transferase 18 U/L (5-31); Bilirubin Total 0.4 mg/dL (0.0-1.0); Blood Urea Nitrogen 12 mg/dL (9-16); Calcium 8.9 mg/dL (8.4-10.2); Carbon Dioxide 24 mmol/L (22-29); Chloride 110 mmol/L (96-108); Cholesterol 160 mg/dL (<200); Estimated Glomerular Filt Rate > 60; Glucose Fasting 104 mg/dL (60-99); HDL Cholesterol 57 mg/dL (>40); LDL Cholesterol Calculated 92 mg/dL (<100); Potassium 4.5 mmol/L (3.3-5.1); Sodium 139 mmol/L (135-145); Total Protein 6.8 g/dL (6.5-8.0); Triglycerides 55 mg/dL (<150)
[2023-02-22 10:02] LABS: Vitamin D 25-OH Total 17.2 ng/mL (>30)
== END 2023-02-22 07:19 | disposition home or self-care (01) ==
LOC: HO.LAB 07:18
PROVIDERS: PCP Internal Medicine; Visit Provider Internal Medicine
DX: Z00.00 Encounter for general adult medical examination without abnormal findings (principal); E55.9 Vitamin D deficiency, unspecified
CPT/HCPCS: 36415; 80053; 80061; 82306

== ENCOUNTER 2023-03-25 14:07 | Outpatient (AMB) | payer OTHER, SELFPAY ==
[2023-03-25 14:09] VITALS: BP 104/72; BMI 36.9
--- NOTE | 2023-03-25 14:09 | MHC.OFFVIS ---
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 She has not having any gynecologist concerns at all she has not worried about any infections and has no symptoms. But she would like full STI testing she has not worried about control because her partner's female. She does get regular periods though she could not remember the date could she does not write it down it was last month about 3 weeks ago and she expects her period next week. She has started exercising very recently with her daughter who wakes her up to go to [employer] at 3 in the morning. This is working out well for both of them and she is very happy about it. [facility] Medical History (Updated 03/25/23 @ 14:48 by Olamide Quiroga CNM) Hx of abnormal cervical Pap smear Well woman exam with routine gynecological exam Screen for sexually transmitted diseases Cervical cancer screening Obesity (BMI 30.0-34.9) Adult general medical exam Injury of right hand Right hand pain Chills Myalgia Sinus pain Chest congestion Cough Vomiting Fatigue COVID-19 Nausea Restless leg syndrome Shortness of breath Vitamin D deficiency Hypothyroidism Vitamin B 12 deficiency Surgical History No pertinent past surgical history Family History Father Essential hypertension Mother Diabetes Depression Sister Gestational diabetes Maternal Grandmother Colon cancer Maternal Grandfather Colon cancer Maternal Aunt Breast cancer Social History Household Members: Children Housing: Apartment Are you a primary managed care nurse to a significant other at home: No Do you presently have visiting nurse or other home services: No Alcohol intake: current Alcohol intake frequency: holidays/special occasions only Alcohol type: wine and other Patient Tobacco Use Status: Former Tobacco user Tobacco use type: Cigarette e-Cigarette/Vaping Use: Never Used Second Hand Smoke Exposure: No service: No Current occupational status: employed Current occupation: [employer] Current occupational exposures/hazards: No Cognitive needs: No Hearing needs: No Vision needs: Yes Female Reproductive History Menstrual Age of Menarche: 14 Duration of menses: 3-5 days control method: none Total pregnancies: 3 Full term: 2 Number of Living Children: 2 Ab spontaneous: 1 Date of last pap smear: 03/26/22 (negative) History of abnormal pap smear: Yes (2012 ASCUS, 2010 2009 LINDSAY 1) Physical Exam Vital Signs: Last Vital Signs BP 104/72 03/25/23 14:09 BMI result Body Mass Index 36.9 Const General: healthy appearing, comfortable, no acute distress, well developed and alert Nutritional Appearance: average body habitus Orientation/consciousness: patient oriented x3 Limitations: no limitations HEENT Head: Yes normocephalic Neck Neck: Yes normal visual inspection Chest Chest palpation & inspection: normal inspection of the chest Breast/axilla inspection: normal inspection of the breasts and normal inspection of the axillae Breast/axilla palpation: normal palpation of the breasts and normal palpation of the axillae Resp Effort & Inspection: normal respiratory effort GI Inspection: Yes normal to inspection, No Abdominal wall edema and No distended Palpation (GI): Soft to palpation and nontender General: Yes bladder normal to palpation External Female Exam: normal external appearance and normal appearance of the urethra Speculum Exam - Vagina: normal appearance of the vagina, normal palpation and normal vaginal discharge Speculum Exam - Cervix: normal appearance of the cervix, normal palpation and nontender Bimanual exam- vagina & uterus: normal bimanual exam, normal palpation, uterine size normal, bladder normal to palpation, consistency normal, normal palpation, uterine mobility normal, uterine shape normal, No Cervical tenderness present, non-tender and no cervical motion tenderness Bimanual Exam- Adnexa, other: normal adnexae, no masses, normal and No adnexal tenderness Neuro General: patient oriented x3 Assessment & Plan Assessment & Plan (1) Hx of abnormal cervical Pap smear: Comment: 2009,2010=cin1, 2012=ascus; all neg since then,03/23/2022 Pap is negative with negative HPV. Code(s): Z87.42 - Personal history of other diseases of the female genital tract (2) Well woman exam with routine gynecological exam: Code(s): Z01.419 - Encounter for gynecological examination (general) (routine) without abnormal findings (3) Encounter for screening examination for sexually transmitted disease: Code(s): Z11.3 - Encounter for screening for infections with a predominantly sexual mode of transmission Plan -----Discussed in this visit the following: healthy balanced diet, regular and consistent exercise, getting recommended health screens, doing the best she can for her particular health concerns, kegel exercises, pap smear screening and followup recommendations, mammography screening and SBE, normal changes in cycles in her life stage--- Congratulated her on her excellent self-care. Testing ordered for STIs that she can do either today or whenever she wishes. Reviewed her Pap smear history she had the abnormals in the 12/13/1999 and 14 years and all were normal since then so she does not need a Pap smear this year. We will see her in 1 year. . Orders: Orders Hepatitis B Surface Antigen Today Z01.419 - Encounter for gynecological examination (general) (routine) without abnormal findings, Z11.3 - Encounter for screening for infections with a predominantly sexual mode of transmission, Z87.42 - Personal history of other diseases of the female genital tract Syphilis Screen Today Z01.419 - Encounter for gynecological examination (general) (routine) without abnormal findings, Z11.3 - Encounter for screening for infections with a predominantly sexual mode of transmission, Z87.42 - Personal history of other diseases of the female genital tract Hepatitis C Antibody Today Z01.419 - Encounter for gynecological examination (general) (routine) without abnormal findings, Z11.3 - Encounter for screening for infections with a predominantly sexual mode of transmission, Z87.42 - Personal history of other diseases of the female genital tract HIV Ab/Ag Today Z01.419 - Encounter for gynecological examination (general) (routine) without abnormal findings, Z11.3 - Encounter for screening for infections with a predominantly sexual mode of transmission, Z87.42 - Personal history of other diseases of the female genital tract Coding Level of Care Code Est Pt Prev Care 18-39y(72167) Diagnoses Hx of abnormal cervical Pap smear Z87.42 Well woman exam with routine gynecological exam Z01.419 Encounter for screening examination for sexually transmitted disease Z11.3
== END 2023-03-25 14:53 | disposition home or self-care (01) ==
LOC: HO.HWS 14:07
PROVIDERS: PCP Internal Medicine; Visit Provider Advanced Practice Midwife
DX: Z01.419 Encounter for gynecological examination (general) (routine) without abnormal findings (principal); Z87.42 Personal history of other diseases of the female genital tract; Z11.3 Encounter for screening for infections with a predominantly sexual mode of transmission
CPT/HCPCS: 99395

== ENCOUNTER 2023-03-25 14:07 | Outpatient (REF) | payer OTHER, SELFPAY ==
[2023-03-26 02:14] LABS: CT PCR NOT DETECTED (Not Detect.); NG PCR NOT DETECTED (Not Detect.)
[2023-03-26 12:30] LABS: BV Int Neg Control Negative (Negative); BV Int Pos Control Positive (Positive)
== END 2023-03-25 14:08 | disposition home or self-care (01) ==
LOC: HO.LNP 14:07
PROVIDERS: PCP Internal Medicine; Visit Provider Advanced Practice Midwife
DX: Z01.419 Encounter for gynecological examination (general) (routine) without abnormal findings (principal); Z11.3 Encounter for screening for infections with a predominantly sexual mode of transmission; Z87.42 Personal history of other diseases of the female genital tract
CPT/HCPCS: 0353U; 87480; 87510; 87660; 99395

== ENCOUNTER 2023-06-05 15:58 | Outpatient (REF) | payer OTHER, SELFPAY | END 2023-06-05 15:59 | disposition home or self-care (01) | LOC: HO.SH 15:58 | PROVIDERS: PCP Internal Medicine; Visit Provider Internal Medicine | DX: H93.13 Tinnitus, bilateral (principal) | CPT/HCPCS: 92557; 92567; 92588 ==

== ENCOUNTER 2023-06-24 12:33 | Outpatient (AMB) | payer OTHER, SELFPAY ==
--- NOTE | 2023-06-24 12:35 | AM.OFFWIN_ITS ---
Intake Vital Signs 06/24/23 12:36 Height 5 ft Weight 192 lb BMI 37.5 BP 128/72 Blood Pressure Location Lt brachial Position Sitting Pulse 104 H Pulse Source Pulse Oximeter Temp 98.1 F Temp Source Temporal Artery Scan Pulse Oximetry (%) 98 Oxygen Delivery Method Room Air Intake Visit Reasons: EP Migraine, weakness, nausea Intake Note: pt is here today for migraine weakness nausea started saturday Patient Tobacco Use Status: Former Tobacco user Allergies No Known Allergies [No Known Allergies*] Allergy (Verified 06/24/23 13:13) Medication List - Last Reconciled 06/24/23 by Julián Jerome MD meloxicam 15 mg PO DAILY Do you need a note to return to daycare/school/sports/work: Yes HPI EP Migraine, weakness, nausea HPI Details 33 yr old female presents to the office for a sick visit. Patient is reporting sx of headaches for the past week. One episode of vomiting. No blurred vision. Headaches are mostly temporal, some relief with Motrin. [facility] Medical History (Updated 03/25/23 @ 14:48 by Olamide Quiroga CNM) Hx of abnormal cervical Pap smear Well woman exam with routine gynecological exam Screen for sexually transmitted diseases Cervical cancer screening Obesity (BMI 30.0-34.9) Adult general medical exam Injury of right hand Right hand pain Chills Myalgia Sinus pain Chest congestion Cough Vomiting Fatigue COVID-19 Nausea Restless leg syndrome Shortness of breath Vitamin D deficiency Hypothyroidism Vitamin B 12 deficiency Surgical History No pertinent past surgical history Family History Father Essential hypertension Mother Diabetes Depression Sister Gestational diabetes Maternal Grandmother Colon cancer Maternal Grandfather Colon cancer Maternal Aunt Breast cancer Social History Household Members: Children Housing: Apartment Are you a primary child care specialist to a significant other at home: No Do you presently have visiting nurse or other home services: No Alcohol intake: current Alcohol intake frequency: holidays/special occasions only Alcohol type: wine and other Patient Tobacco Use Status: Former Tobacco user Tobacco use type: Cigarette e-Cigarette/Vaping Use: Never Used Second Hand Smoke Exposure: No service: No Current occupational status: employed Current occupation: [employer] Current occupational exposures/hazards: No Cognitive needs: No Hearing needs: No Vision needs: Yes Female Reproductive History Menstrual Age of Menarche: 14 Physical Exam Vital Signs: Last Vital Signs Temp 98.1 F 06/24/23 12:36 Pulse 104 H 06/24/23 12:36 BP 128/72 06/24/23 12:36 Pulse Ox 98 06/24/23 12:36 Oxygen Delivery Method Room Air 06/24/23 12:36 BMI result Body Mass Index 37.5 Const General: cooperative and healthy appearing Nutritional Appearance: well nourished Orientation/consciousness: patient oriented x3 Limitations: no limitations HEENT Head: Yes normal to inspection Eyes General: appearance normal, both eyes and all related structures Neck Neck: Yes normal visual inspection Chest Chest palpation & inspection: normal palpation of entire chest wall Resp Effort & Inspection: normal respiratory effort Neuro General: patient oriented x3 Assessment & Plan Assessment & Plan (1) Vascular headache: Code(s): G44.1 - Vascular headache, not elsewhere classified Plan: Meloxicam called in. If sx do not improve to follow up here. Medications: New meloxicam 15 mg PO DAILY 14 tabs 0RF Coding Level of Care Code Est Pt Level 3 (50693) Diagnoses Vascular headache G44.1
[2023-06-24 12:36] VITALS: BP 128/72; PULSE 104; TEMP 36.7; O2SAT 98; BMI 37.5
== END 2023-06-24 13:23 | disposition home or self-care (01) ==
PROVIDERS: PCP Internal Medicine; Visit Provider Internal Medicine
DX: G44.1 Vascular headache, not elsewhere classified (principal)
CPT/HCPCS: 99213

== ENCOUNTER 2023-07-10 16:16 | Outpatient (AMB) | payer OTHER, SELFPAY ==
--- NOTE | 2023-07-10 16:17 | MHC.PC.OV ---
Vital Signs 07/10/23 16:18 Height 5 ft Weight 191 lb BMI 37.3 BP 120/72 Blood Pressure Location Lt brachial Position Sitting Intake Visit Reasons: migraine Intake Note: Patient here for a follow up Migraine Retail Field Representative Required: No Accompanied by: Self / Same As Patient Allergies No Known Allergies [No Known Allergies*] Allergy (Verified 07/10/23 16:33) Medication List - Last Reconciled 07/10/23 by Melody Carrizales MD levothyroxine (Synthroid) 100 mcg PO DAILY Tobacco use date assessed: 07/10/23 Dental Screening Dental Screen Date: 07/10/23 Did you have a dental visit in the last 12 months?: No Did you have a dental problem in the last 6 months where you did not have access to dental care?: No Was dental information given to patient?: Patient has dentist HPI HPI Comments History of Present Illness Details This is a 33-year-old female with hypothyroidism, vitamin-D deficiency, mild recurrent major depression and obesity that comes today complaining of headache that started about 2 weeks ago. TSH and vitamin-D was ordered. She has depression and I will start her on amitriptyline for migraine prophylaxis and will be referred to counseling. The headaches are in the occiput with no neurological deficit. This happened after crying and it is not on a daily basis. She is obese with a BMI of 37.3 and has had diet and exercise with no significant improvement. Will start Wegovy if insurance approved. [facility] Medical History (Updated 07/10/23 @ 17:22 by Melody Carrizales MD) Hx of abnormal cervical Pap smear Well woman exam with routine gynecological exam Screen for sexually transmitted diseases Cervical cancer screening Obesity (BMI 30.0-34.9) Adult general medical exam Injury of right hand Right hand pain Chills Myalgia Sinus pain Chest congestion Cough Vomiting Fatigue COVID-19 Nausea Restless leg syndrome Shortness of breath Vitamin D deficiency Hypothyroidism Vitamin B 12 deficiency Surgical History No pertinent past surgical history Family History Father Essential hypertension Mother Diabetes Depression Sister Gestational diabetes Maternal Grandmother Colon cancer Maternal Grandfather Colon cancer Maternal Aunt Breast cancer Social History Household Members: Children Housing: Apartment Are you a primary career services assistant to a significant other at home: No Do you presently have visiting nurse or other home services: No Alcohol intake: current Alcohol intake frequency: holidays/special occasions only Alcohol type: wine and other Patient Tobacco Use Status: Former Tobacco user Tobacco use type: Cigarette e-Cigarette/Vaping Use: Never Used Second Hand Smoke Exposure: No service: No Current occupational status: employed Current occupation: [employer] Current occupational exposures/hazards: No Cognitive needs: No Hearing needs: No Vision needs: Yes Female Reproductive History Menstrual Age of Menarche: 14 Questionnaire PHQ-9 Over the last 2 weeks, how often have you been bothered by any of the following problems? 1. Little interest or pleasure in doing things: several days 2. Feeling down, depressed, or hopeless: more than half the days 3. Trouble falling or staying asleep, or sleeping too much: more than half the days 4. Feeling tired or having little energy: more than half the days 5. Poor appetite or overeating: more than half the days 6. Feeling bad about yourself - or that you are a failure or have let yourself or your family down: several days 7. Trouble concentrating on things, such as reading the newspaper or watching television: nearly every day 8. Moving or speaking so slowly that other people could have noticed. Or the opposite - being so fidgety or restless that you have been moving around a lot more than usual: more than half the days 9. Thoughts that you would be better off or of hurting yourself in some way: not at all Total score: 15 Depression Screening Interpretation: Positive Depression Screening Follow-up: Existing condition Depression Screening Done: Yes 18978 - PHQ-9 Billing: Yes Source: Developed by Drs. Alex Johnson, Hanh Clark, Marcus Pedro and colleagues, with an educational liborio from [employer]. Thrive Questionnaire Date Thrive assessed: 07/10/23 I am a: Patient What is your living situation today?: I have a steady place to live Within the past 12 months, did the food you bought not last and you didn't have the money to get more?: Never true Within the past 12 months, did you worry whether your food would run out before you got money to buy more?: Never true Do you have trouble paying for medicines?: No Do you have trouble getting transportation to medical appointments?: No Do you have trouble paying your heating and electricity bill?: No Do you have trouble taking care of your child, family member or friend?: No Do you have trouble with day-to-day activities such as bathing, preparing meals, shopping, managing finances, etc.?: No Are you currently unemployed and looking for a job?: No Are you interested in more education?: No Please select the resources that you would like help with: None Currently or been in a relationship where the following occur: no concerns reported THRIVE Score: 0 AUDIT C Alcohol Use Questionnaire (AUDIT-C) 1. How often do you have a drink containing alcohol?: Never Total Score: 0 KATIE-7 AMB Questionnaire KATIE-7 Date KATIE - 7 assessed: 07/10/23 Feeling nervous, anxious, or on edge: 3 = Nearly every day Not being able to stop or control worryin = Several days Worrying too much about different things: 3 = Nearly every day Trouble relaxin = More than half the days Being so restless that it is hard to sit still: 1 = Several days Becoming easily annoyed or irritable: 2 = More than half the days Feeling afraid as if something awful might happen: 1 = Several days Total KATIE-7 score (0-4 normal; 5-9 mild; 10-14 moderate; 15-21 severe): 13 Source: Developed by Drs. Alex Johnson, Hanh Clark, Marcus Pedro and colleagues, with an educational liborio from [employer]. KATIE-7 Assessment Billing KATIE-7 Assessment Tool: KATIE-7 Assessment 36869 Review of Systems Const All systems reviewed & are unremarkable except as noted in HPI and below Reports headache(s) ENT Reports headache(s) Resp Denies cough GI Denies abdominal pain, Denies change in bowel habits, Denies excessive flatus, Denies nausea and Denies vomiting Denies urinary incontinence, Denies urinary hesitancy and Denies urinary urgency Musc Denies abnormal gait, Denies atrophy, Denies deformity and Denies limited range of motion Skin/Breast Denies bleeding lesions, Denies changing lesions and Denies rash Neuro Denies abnormal gait, Denies confusion, Reports headache(s) and Denies lack of coordination Psych Denies confusion Physical exam (Primary Care) Vital Signs: Last Vital Signs BP 120/72 07/10/23 16:18 BMI result Body Mass Index 37.3 Tobacco/Smoking Status: Tobacco use Status Tobacco use date assessed 07/10/23 07/10/23 16:25 Patient Tobacco Use Status Former Tobacco user 07/10/23 16:25 Tobacco use type Cigarette 07/10/23 16:25 e-Cigarette/Vaping Use Never Used 07/10/23 16:25 PHQ-9: PHQ-9 Score PHQ-9: Total score 15 07/10/23 16:36 Depression Screening Interpretation: Positive Depression Screening Follow-up: Existing condition Thrive Assessment: Date of Thrive Assessment Date Thrive assessed 07/10/23 07/10/23 16:25 Currently or been in a relationship where the following occur: no concerns reported Const General: No confusion Orientation/consciousness: patient oriented x3 and No confusion Resp Effort & Inspection: normal respiratory effort Auscultation: clear to auscultation bilaterally Cardio Jugular venous distension: no JVD Rate: regular rate Rhythm: regular rhythm Heart sounds: S1 normal heart sound present and S2 normal heart sound present Neuro General: patient oriented x3, no focal motor deficits and No confusion Extrem General: Yes full ROM Assessment and Plan Assessment & Plan (1) Mild recurrent major depression: Code(s): F33.0 - Major depressive disorder, recurrent, mild Plan: Start amitriptyline. (2) Class 2 obesity with body mass index (BMI) of 37.0 to 37.9 in adult: Code(s): E66.9 - Obesity, unspecified; Z68.37 - Body mass index [BMI] 37.0-37.9, adult Plan: Start diet and exercise. Start Wegovy. BMI goal is less than 30. (3) Hypothyroidism: Code(s): E03.9 - Hypothyroidism, unspecified Qualifiers: Hypothyroidism type: acquired Qualified Code(s): E03.9 - Hypothyroidism, unspecified Plan: Continue levothyroxine. Repeat TSH. (4) Vitamin D deficiency: Code(s): E55.9 - Vitamin D deficiency, unspecified Plan: Repeat vitamin-D levels. (5) Headache: Code(s): R51.9 - Headache, unspecified Plan: Start sumatriptan as needed. Start amitriptyline at bedtime. Orders: Orders Vitamin D 25-OH Total Today E55.9 - Vitamin D deficiency, unspecified Thyroid Stimulating Hormone Today E03.9 - Hypothyroidism, unspecified Referrals Counseling Referral F33.0 - Major depressive disorder, recurrent, mild Medications: New sumatriptan succinate do not exceed 8 doses per 24 hrs 25 mg PO Q2-4H PRN 9 tabs 0RF migraine headache 30 days semaglutide (weight loss) (Deshawn) administer weeks 1 through 4 of therapy 0.25 mg (0.5 mL) subcut QWEEK 2 mL 0RF 4 weeks E66.9 - Obesity, unspecified, Z68.37 - Body mass index [BMI] 37.0-37.9, adult amitriptyline 25 mg PO BEDTIME 90 tabs 0RF 90 days G43.909 - Migraine, unspecified, not intractable, without status migrainosus Coding Level of Care Code Est Pt Level 4 (96699) Diagnoses Mild recurrent major depression F33.0 Class 2 obesity with body mass index (BMI) of 37.0 to 37.9 in adult E66.9; Z68.37 Acquired hypothyroidism E03.9 Hypothyroidism type: acquired Vitamin D deficiency E55.9 Headache R51.9 Additional Codes KATIE-7 Assessment Billing - KATIE-7 Assessment Tool: KATIE-7 Assessment 76014 ([id number]) Time Spent (min) 24
[2023-07-10 16:18] VITALS: BP 120/72; BMI 37.3
== END 2023-07-10 16:47 | disposition home or self-care (01) ==
PROVIDERS: PCP Internal Medicine; Visit Provider Internal Medicine
DX: E03.9 Hypothyroidism, unspecified (principal); F33.0 Major depressive disorder, recurrent, mild; E66.9 Obesity, unspecified; Z68.37 Body mass index [BMI] 37.0-37.9, adult; E55.9 Vitamin D deficiency, unspecified; R51.9 Headache, unspecified
CPT/HCPCS: 99214

== ENCOUNTER 2023-07-19 08:54 | Outpatient (REF) | payer OTHER, SELFPAY ==
[2023-07-19 10:52] LABS: Free T4 (Free Thyroxine) 0.79 ng/dL (0.71-1.85)
== END 2023-07-19 08:55 | disposition home or self-care (01) ==
LOC: HO.LAB 08:54
PROVIDERS: Internal Medicine Endocrinology, Diabetes & Metabolism; Absent Provider Advanced Practice Midwife; PCP Internal Medicine; Visit Provider Internal Medicine
DX: E03.9 Hypothyroidism, unspecified (principal); E55.9 Vitamin D deficiency, unspecified
CPT/HCPCS: 36415; 82306; 84439; 84443

== ENCOUNTER 2023-09-18 11:19 | Emergency (ER) | payer OTHER, SELFPAY ==
--- NOTE | ~2023-09-18 | CT_ITS ---
EXAMINATION: CT HEAD WITHOUT CONTRAST CLINICAL INFORMATION: Headache. COMPARISON: Multiple priors, most recent MR brain dated 06/11/2018. TECHNIQUE: Contiguous axial imaging was performed from the skull base to vertex without intravenous administration of contrast. This CT examination was performed using dose optimization techniques as appropriate, variously including the following: *Automated exposure control *Adjustment of mA and/or kV according to patient size (this includes techniques or standardized protocols for targeted exams where dose is matched to indication/reason for exam; i.e. extremities or head) *Use of iterative reconstruction technique DLP: 676 mGy-cm FINDINGS: No acute intracranial hemorrhage. No mass effect or midline shift. No parenchymal lesion. The vazquez-white differentiation is maintained. No extra-axial fluid collection. The ventricles and sulci are unremarkable. The basal cisterns are patent. The calvarium is intact. The visualized paranasal sinuses and mastoid air cells are clear. CT/CT head/brain wo IV con IMPRESSION: No acute intracranial hemorrhage or mass effect.
[2023-09-18 12:01] VITALS: BP 111/68; PULSE 76; RESP 18; TEMP 36.4; O2SAT 98; BMI 38.0
--- NOTE | 2023-09-18 12:03 | ED_ITS ---
HPI - General Adult General Chief complaint: General Medical Stated complaint: dehydrated Time Seen by Provider: 09/18/23 16:43 Source: patient, RN notes reviewed and old records reviewed Mode of arrival: ambulatory Limitations: no limitations History of Present Illness ED Provider: Dieter MCKAY narrative: 33-year-old female presents for evaluation of weakness, dizziness. Patient reports that she had a syncopal episode yesterday. She states that this is a common occurrence for her and happens every summer. She states she has had increased weakness and dizziness for the last week. She reports yesterday she was walking in her house when she ?passed out. ? She states that her family was next to her and caught her before she fell to the ground. She never had any chest pain, shortness of breath Patient states that she has never seen a nurses' registry director. She complains of a headache Denies any abdominal pain, nausea vomiting No other complaints or concerns at this time Related Data Previous Rx's ?Medication ?Instructions ?Recorded amitriptyline 25 mg tablet 25 mg PO BEDTIME 90 days #90 tabs 07/10/23 semaglutide (weight loss) 0.25 0.25 mg (0.5 mL) subcut QWEEK 4 07/10/23 mg/0.5 mL subcutaneous pen weeks #2 mL injector (Wegovy) Synthroid 100 mcg tablet 100 mcg PO DAILY #30 tabs 07/15/23 (levothyroxine) cholecalciferol (vitamin D3) 50 50 mcg PO DAILY 90 days #90 caps 07/21/23 mcg (2,000 unit) capsule sumatriptan succinate 25 mg tablet 25 mg PO Q2-4H PRN migraine 09/03/23 headache 30 days #9 tabs cefuroxime axetil 250 mg tablet 250 mg PO Q12H #10 tabs 09/18/23 Allergies Allergy/AdvReac Type Severity Reaction Status Date / Time No Known Allergies Allergy Verified 09/18/23 12:04 [No Known Allergies*] Review of Systems 2 Constitutional: Constitutional: Denies body ache(s), Denies chills and Denies fever(s) Eyes: Eyes: Denies blurry vision ENT: Denies vertigo and Reports dizziness Cardiovascular: Cardiovascular: Denies chest pain, Reports syncope, Denies palpitations and Denies dyspnea Respiratory: Respiratory: Denies cough and Denies dyspnea Gastrointestinal: Gastrointestinal: Denies abdominal pain, Denies nausea and Denies vomiting Musculoskeletal: Musculoskeletal: Denies back pain Integumentary/Breasts: Skin/Breast: Denies rash Neurologic: Denies vertigo, Reports dizziness and Reports syncope Psychiatric: Psychiatric: Denies anxiety and Denies panic attacks Endocrine: Endocrine: Denies palpitations [facility] Past Medical History Medical History Hx of abnormal cervical Pap smear Well woman exam with routine gynecological exam Screen for sexually transmitted diseases Cervical cancer screening Obesity (BMI 30.0-34.9) Adult general medical exam Injury of right hand Right hand pain Chills Myalgia Sinus pain Chest congestion Cough Vomiting Fatigue COVID-19 Nausea Restless leg syndrome Shortness of breath Vitamin D deficiency Hypothyroidism Vitamin B 12 deficiency Surgical History No pertinent past surgical history Family History Family History Father Essential hypertension Mother Diabetes Depression Sister Gestational diabetes Maternal Grandmother Colon cancer Maternal Grandfather Colon cancer Maternal Aunt Breast cancer Social History Social History Household Members: Children Housing: Apartment Are you a primary care transitions nurse to a significant other at home: No Do you presently have visiting nurse or other home services: No Alcohol intake: current Alcohol intake frequency: holidays/special occasions only Alcohol type: wine and other Patient Tobacco Use Status: Former Tobacco user Tobacco use type: Cigarette e-Cigarette/Vaping Use: Never Used Second Hand Smoke Exposure: No Advance Directives: No Do you have a plan to hurt others: No Plan service: No Current occupational status: employed Current occupation: [employer] Current occupational exposures/hazards: No Cognitive needs: No Hearing needs: No Vision needs: Yes Physical Exam ED Vital Signs: Vital Signs - 24 hr 09/18/23 12:01 09/18/23 15:44 09/18/23 18:34 Temperature 97.5 F 99.1 F 98.0 F Pulse Rate 76 82 77 Respiratory Rate 18 18 16 Blood Pressure 111/68 129/80 86/48 L Pulse Oximetry 98 99 100 Oxygen Delivery Method Room Air Room Air Room Air BMI result Body Mass Index 38.0 Const General: healthy appearing, comfortable, no acute distress, alert and awake Nutritional Appearance: well nourished Orientation/consciousness: patient oriented x3 HENMT Head: Yes normocephalic and Yes atraumatic Eyes Eyelids: Yes eyelids normal Conjunctivae: conjunctivae normal Sclerae: sclerae normal Corneas: corneas normal Pupils: Equal, round and reactive pupils present EOM: EOMs intact bilaterally Neck Neck: Yes full ROM Resp Effort & Inspection: normal respiratory effort, able to speak in complete sentences and not labored GI Inspection: No distended Palpation (GI): Soft to palpation, not firm, nontender, no guarding and not rigid Skin General skin exam: elasticity normal Neuro General: patient oriented x3 Cranial nerves: Yes Equal, round and reactive pupils present and Yes Bilaterally intact EOM present Cognition (Neuro): normal cognition Extrem Other: Moving all extremities well without any obvious deformities Course Course Course Narrative: This is an RME: Additional HPI, ROS, PE not included below will be deferred to primary provider. RME assessment and note performed by: Elizabeth Urbano PA-C This is a 89-alij-hap-female, with a hx of asthma, thyroid disease, and leukopenia, who presents to the ER with complaints of dizziness and weakness x 1 week. Reporting that she fainted yesterday. Reporting headache and body aches, also stating her legs feel swollen. No sick contacts, recent travel, surgeries, hospitalizations. Plan: Labs, EKG, Viral swabs Medications Administered Discontinued Medications Generic Name Dose Route Start Last Admin Trade Name Álvaroq PRN Reason Stop Dose Admin Diphenhydramine HCl 25 mg 09/18/23 17:35 09/18/23 18:02 Diphenhydramine Hcl 50 Mg/Ml Vial IVPUSH 09/18/23 17:36 25 mg ONCE ONE Administration Sodium Chloride 1,000 mls @ 999 mls/hr 09/18/23 17:45 09/18/23 18:02 Ns IV 09/18/23 18:45 999 mls/hr .Q1H1M SUZIE Administration Ketorolac Tromethamine 30 mg 09/18/23 17:35 09/18/23 18:04 Ketorolac Tromethamine 30 Mg/Ml Vial IVPUSH 09/18/23 17:36 30 mg ONCE ONE Administration Metoclopramide HCl 10 mg 09/18/23 17:35 09/18/23 18:04 Metoclopramide Hcl 10 Mg/2 Ml Vial IVPUSH 09/18/23 17:36 10 mg ONCE ONE Administration Medical Decision Making Medical Decision Making [facility] Narrative: 33-year-old female presents for evaluation of weakness and a syncopal episode. Patient's vital signs are within normal limits, workup was largely unremarkable with the exception of a UTI. She does complain of a headache and a syncopal episode yesterday. She is PERC negative. She states that she has never had a CT scan of her brain, we will order this today. We will treat her weakness and headache with fluids, Toradol, Reglan. Differential Diagnosis Differential Diagnoses: The differential diagnosis associated with the presentation includes UTI Syncope Orthostatic hypertension Weakness CAESAR dehydration Lab Data [facility] Lab Attestation statement: I reviewed the patient's lab results. Patient has no leukocytosis, no significant anemia. Normal platelet count. No left shift chemistries with no significant abnormalities requiring intervention. Renal function normal limits he has normal limits, troponin negative, BNP within normal limits. 09/18/23 12:42 09/18/23 12:42 Labs: Lab Results 09/18/23 09/18/23 Range/Units 12:42 15:51 WBC 4.9 (4.8-10.8) X10*3/uL RBC 3.95 L (4.20-5.50) X10*6/uL Hgb 12.6 (12.0-16.0) g/dl Hct 36.6 L (37.0-47.0) % MCV 92.7 (80.0-98.0) fL MCH 31.9 (27.0-33.0) pg MCHC 34.4 (31.0-35.0) g/dl RDW 12.6 (11.0-16.0) % Plt Count 282 (160-400) X10*3/uL MPV 9.8 (9.4-12.3) fL Immature Gran % (Auto) 0.4 (0.0-0.4) % Neut % (Auto) 59.8 (45-73) % Lymph % (Auto) 31.3 (20-40) % [place] % (Auto) 5.8 (2-11) % Eos % (Auto) 1.9 (0-4) % Baso % (Auto) 0.8 (0-2) % Lymph # (Auto) 1.5 (1.2-4.9) X10*3/uL [place] # (Auto) 0.3 (0.1-1.2) X10*3/uL Eos # (Auto) 0.1 (0.0-0.4) X10*3/uL Baso # (Auto) 0.0 (0.0-0.2) X10*3/uL Abs Immat Gran (auto) 0.02 (0.00-0.03) X10*3/uL Absolute Neuts (auto) 2.9 (2.0-8.3) x10*3/uL Absolute Nucleated RBC 0.000 (0.0-0.012) X10*3/uL Nucleated RBC % (auto) 0.0 (0.0-0.2) /100WBC PT 11.6 (11.1-13.3) SEC INR 1.0 (0.9-1.1) Sodium 141 (135-145) mmol/L Potassium 4.3 (3.3-5.1) mmol/L Chloride 110 H (96-108) mmol/L Carbon Dioxide 24 (22-29) mmol/L Anion Gap 11 L (12-20) BUN 10 (9-16) mg/dL Creatinine 0.69 (0.5-1.4) mg/dL Estim Creat Clear Calc 115.6 Estimated GFR > 60 Random Glucose 88 (60-115) mg/dL Calcium 9.1 (8.4-10.2) mg/dL Magnesium 2.0 (1.6-2.6) mg/dL Total Bilirubin 0.6 (0.0-1.0) mg/dL Direct Bilirubin 0.2 (0.0-0.5) mg/dL AST 16 (5-31) U/L ALT 20 (0-31) U/L Alkaline Phosphatase 65 (39-117) U/L Troponin I High Sens < 2.7 (<3.5-17.0) ng/L B-Natriuretic Peptide 12 (<100) pg/mL Total Protein 6.6 (6.5-8.0) g/dL Albumin 3.8 (3.5-5.0) g/dL Lipase 25 (8-78) U/L Beta HCG, Quant < 2 mIU/mL Urine Color Yellow Urine Appearance Clear Urine pH 6.5 (5.0-9.0) Ur Specific Silva 1.020 (1.005-1.025) Urine Protein Negative (Neg-Trace) mg/dL Urine Glucose (UA) Negative (Negative) mg/dL Urine Ketones Negative (Negative) mg/dL Urine Blood Negative (Negative) Urine Nitrite Negative (Negative) Ur Leukocyte Esterase Moderate (2+) H (Negative) Urine RBC 0-2 (0-2) /HPF Urine WBC 6-10 H (0-5) /HPF Ur Squamous Epith Cells 3-5 (0-2) /HPF Urine Bacteria 3+ (None Seen) Hyaline Casts 0-2 (0-2) /LPF Influenza Type A (PCR) NEGATIVE (Negative) Influenza Type B (PCR) NEGATIVE (Negative) RSV RNA Qual (PCR) NEGATIVE (Negative) SARS-CoV-2 RNA (RT-PCR) NEGATIVE (Negative) Radiology Impression Discussion of test interpretation with radiology: I have reviewed the radiologist's reading. Radiologist Impression: CT/CT head/brain wo IV con IMPRESSION: No acute intracranial hemorrhage or mass effect. Discharge Plan Discharge Clinical Impression: UTI (urinary tract infection), Syncope Patient Disposition: Home, Self-Care Instructions: Urinary Tract Infection in Women (ED), Syncope (ED) Additional Instructions: Your workup in the ER was significant for a urinary tract infection. Take cefuroxime twice daily for 5 days. Drink lots of fluids Your CT scan did not show any concerning findings Follow-up with cardiology epididymal provided given your fainting episodes. Return for new or worsening symptoms Prescriptions: New cefuroxime axetil 250 mg tablet 250 mg PO Q12H Qty: 10 0RF No Action levothyroxine [Synthroid] 100 mcg tablet 100 mcg PO DAILY Qty: 30 4RF cholecalciferol (vitamin D3) 50 mcg (2,000 unit) capsule 50 mcg PO DAILY 90 Days Qty: 90 1RF sumatriptan succinate 25 mg tablet 25 mg PO Q2-4H PRN (Reason: migraine headache) 30 Days Qty: 9 0RF Rx Instructions: do not exceed 8 doses per 24 hrs amitriptyline 25 mg tablet 25 mg PO BEDTIME 90 Days Qty: 90 0RF Wegovy 0.25 mg/0.5 mL pen injector 0.25 mg subcut QWEEK 28 Days Qty: 2 0RF Rx Instructions: administer weeks 1 through 4 of therapy Referrals: Lorenzo Gutierrez MD [Physician] - (recurrent syncope) Print Language: Polish
--- NOTE | 2023-09-18 12:06 | ECG_ITS ---
Test Reason : DISSINESS Blood Pressure : / mmHG Vent. Rate : 067 BPM Atrial Rate : 067 BPM P-R Int : 132 ms QRS Dur : 106 ms QT Int : 392 ms P-R-T Axes : 035 063 031 degrees QTc Int : 414 ms Normal sinus rhythm Incomplete right bundle branch block Borderline ECG No previous ECGs available Referred By: Elizabeth Urbano Electronically Signed By:GLO SOSA MD
[2023-09-18 12:49] LABS: MANUAL DIFF FLAG NO
[2023-09-18 12:51] LABS: Basophils Percent Auto 0.8 % (0-2); Eosinophils Absolute Auto 0.1 X10*3/uL (0.0-0.4); Eosinophils Percent Auto 1.9 % (0-4); Hematocrit 36.6 % (37.0-47.0); Hemoglobin 12.6 g/dl (12.0-16.0); Imm Gran Abs Auto 0.02 X10*3/uL (0.00-0.03); Imm Gran Pct Auto 0.4 % (0.0-0.4); Lymphocytes Absolute Auto 1.5 X10*3/uL (1.2-4.9); Lymphocytes Percent Auto 31.3 % (20-40); Mean Corpuscular HGB Conc 34.4 g/dl (31.0-35.0); Mean Corpuscular Hemoglobin 31.9 pg (27.0-33.0); Mean Corpuscular Volume 92.7 fL (80.0-98.0); Mean Platelet Volume 9.8 fL (9.4-12.3); Monocytes Absolute Auto 0.3 X10*3/uL (0.1-1.2); Monocytes Percent Auto 5.8 % (2-11); Neutrophils Absolute Auto 2.9 x10*3/uL (2.0-8.3); Neutrophils Percent Auto 59.8 % (45-73); Platelet Count 282 X10*3/uL (160-400); Red Blood Count 3.95 X10*6/uL (4.20-5.50); Red Cell Distribution Width 12.6 % (11.0-16.0); White Blood Count 4.9 X10*3/uL (4.8-10.8)
[2023-09-18 13:03] LABS: Prothrombin Time 11.6 SEC (11.1-13.3)
[2023-09-18 13:14] LABS: B Type Natriuretic Peptide 12 pg/mL (<100)
[2023-09-18 13:15] LABS: Alanine Aminotransferase 20 U/L (0-31); Albumin Level 3.8 g/dL (3.5-5.0); Alkaline Phosphatase 65 U/L (39-117); Anion Gap 11 (12-20); Aspartate Amino Transferase 16 U/L (5-31); Bilirubin Direct 0.2 mg/dL (0.0-0.5); Bilirubin Total 0.6 mg/dL (0.0-1.0); Blood Urea Nitrogen 10 mg/dL (9-16); Calcium 9.1 mg/dL (8.4-10.2); Carbon Dioxide 24 mmol/L (22-29); Chloride 110 mmol/L (96-108); Creatinine Clr Calc Pharmacy 115.6; Estimated Glomerular Filt Rate > 60; Glucose Random 88 mg/dL (60-115); Lipase 25 U/L (8-78); Potassium 4.3 mmol/L (3.3-5.1); Sodium 141 mmol/L (135-145); Total Protein 6.6 g/dL (6.5-8.0)
[2023-09-18 13:23] LABS: HCG Quantitative < 2 mIU/mL; Troponin-I High Sensitivity < 2.7 ng/L (<3.5-17.0)
[2023-09-18 13:28] LABS: Influenza A PCR NEGATIVE (Negative); Influenza B PCR NEGATIVE (Negative); Resp Syncy Virus RNA Qual PCR NEGATIVE (Negative); SARS COV2 PCR INHOUSE NEGATIVE (Negative)
[2023-09-18 15:44] VITALS: BP 129/80; PULSE 82; RESP 18; TEMP 37.3; O2SAT 99
[2023-09-18 16:00] LABS: Appearance Urine Clear; Color Urine Yellow; Glucose Urine UA Negative (Negative); Leukocyte Esterase Urine Moderate (2+) (Negative); Nitrite Urine Negative (Negative); PH 6.5 (5.0-9.0); UMIC TRIGGER UACC YES; Urine Blood Negative (Negative); Urine Ketones Negative (Negative); Urine Protein Negative (Neg-Trace)
[2023-09-18 16:10] LABS: Bacteria Urine 3+ (None Seen); Hyaline Casts Urine 0-2 /LPF (0-2); RBC Urine 0-2 /HPF (0-2); UACC Culture Trigger YES
[2023-09-18] MEDS: diphenhydrAMINE HCL 50 MG/ML VIAL 25 MG IVPUSH (18:02)
[2023-09-18] MEDS: 0.9 % Sodium Chloride 1,000 ML 999 ML IV (18:02)
[2023-09-18] MEDS: Metoclopramide HCl 10 MG/2 ML VIAL IVPUSH (18:04)
[2023-09-18] MEDS: Ketorolac Tromethamine 30 MG/ML VIAL IVPUSH (18:04)
[2023-09-18 18:34] VITALS: BP 86/48; PULSE 77; RESP 16; TEMP 36.7; O2SAT 100
--- NOTE | 2023-09-18 18:35 | MHC.EDTECH ---
at this time the pt said she felt dizzy, raised the head of the bed. RN aware
[2023-09-18] MEDS: cefuroxime axetiL 250 MG TABLET PO (20:49)
[2023-09-18 21:23] VITALS: BP 98/56; PULSE 70; RESP 16; TEMP 36.7; O2SAT 98
== END 2023-09-18 21:25 | disposition home or self-care (01) ==
PROVIDERS: Physician Assistant Medical; Emergency Provider Internal Medicine; PCP Internal Medicine
DX: N39.0 Urinary tract infection, site not specified (principal); R55 Syncope and collapse; R53.1 Weakness; Z03.818 Encounter for observation for suspected exposure to other biological agents ruled out; J45.909 Unspecified asthma, uncomplicated; Z79.899 Other long term (current) drug therapy
CPT/HCPCS: 0241U; 70450; 80048; 80076; 81001; 81003; 83690; 83735; 83880; 84484; 84702; 85025; 85610; 87086; 93005; 96361; 96374; 96375; 99284; J1200; J1885; J2765

== ENCOUNTER → 2023-09-18 12:06 | Outpatient (BNV) | payer OTHER, SELFPAY | PROVIDERS: Emergency Provider Internal Medicine; PCP Internal Medicine; Visit Provider Internal Medicine Cardiovascular Disease | DX: R42 Dizziness and giddiness (principal) | CPT/HCPCS: 93010 ==

== ENCOUNTER 2023-09-19 08:00 | Outpatient (AMB) | payer OTHER, SELFPAY ==
[2023-09-19 08:14] VITALS: BP 98/70; PULSE 82; O2SAT 98; BMI 37.7
--- NOTE | 2023-09-19 08:14 | A.OFFPC_ITS ---
Vital Signs 09/19/23 08:14 Height 5 ft Weight 193 lb BMI 37.7 BP 98/70 Blood Pressure Location Lt brachial Position Sitting Pulse 82 Pulse Source Pulse Oximeter Pulse Oximetry (%) 98 Oxygen Delivery Method Room Air Intake Visit Reasons: ExtreamlyWeak,Headaches,BodyPain Nib Adjuster Required: No Accompanied by: Self / Same As Patient Allergies No Known Allergies [No Known Allergies*] Allergy (Verified 09/19/23 08:26) Medication List - Last Reconciled 09/19/23 by Julián Jerome MD amitriptyline 25 mg PO BEDTIME 90 days cefuroxime axetil 250 mg PO Q12H semaglutide (weight loss) (Wegovy) 0.25 mg (0.5 mL) subcut QWEEK 4 weeks sumatriptan succinate 25 mg PO Q2-4H PRN 30 days Synthroid (levothyroxine) 100 mcg PO DAILY NS Tobacco use date assessed: 07/10/23 Dental Screening Dental Screen Date: 07/10/23 HPI ExtreamlyWeak,Headaches,BodyPain HPI Details 33-year-old female presents to the [facility] for a sick visit. I am the covering physician as her regular physician is not available. Patient reports weakness and body aches and fatigue for the past week. Symptoms were worsening over the last few days. She was seen in the emergency room yesterday and diagnosed with a urinary tract infection. She has been discharged home on p.o. antibiotics. Today she feels better. Able to function and do activities of daily living. [facility] Medical History Hx of abnormal cervical Pap smear Well woman exam with routine gynecological exam Screen for sexually transmitted diseases Cervical cancer screening Obesity (BMI 30.0-34.9) Adult general medical exam Injury of right hand Right hand pain Chills Myalgia Sinus pain Chest congestion Cough Vomiting Fatigue COVID-19 Nausea Restless leg syndrome Shortness of breath Vitamin D deficiency Hypothyroidism Vitamin B 12 deficiency Surgical History No pertinent past surgical history Family History Father Essential hypertension Mother Diabetes Depression Sister Gestational diabetes Maternal Grandmother Colon cancer Maternal Grandfather Colon cancer Maternal Aunt Breast cancer Social History Household Members: Children Housing: Apartment Are you a primary care team assistant to a significant other at home: No Do you presently have visiting nurse or other home services: No Alcohol intake: current Alcohol intake frequency: holidays/special occasions only Alcohol type: wine and other Patient Tobacco Use Status: Former Tobacco user Tobacco use type: Cigarette e-Cigarette/Vaping Use: Never Used Second Hand Smoke Exposure: No service: No Current occupational status: employed Current occupation: [employer] Current occupational exposures/hazards: No Cognitive needs: No Hearing needs: No Vision needs: Yes Female Reproductive History Menstrual Age of Menarche: 14 Questionnaire Thrive Questionnaire Date Thrive assessed: 07/10/23 KATIE-7 AMB Questionnaire KATIE-7 Date KATIE - 7 assessed: 07/10/23 Source: Developed by Drs. Alex Johnson, Hanh Clark, Marcus Pedro and colleagues, with an educational liborio from [employer]. Physical exam (Primary Care) Vital Signs: Last Vital Signs Pulse 82 09/19/23 08:14 BP 98/70 09/19/23 08:14 Pulse Ox 98 09/19/23 08:14 Oxygen Delivery Method Room Air 09/19/23 08:14 BMI result Body Mass Index 37.7 Tobacco/Smoking Status: Tobacco use Status Tobacco use date assessed 07/10/23 09/19/23 08:19 Patient Tobacco Use Status Former Tobacco user 09/19/23 08:19 Tobacco use type Cigarette 09/19/23 08:19 e-Cigarette/Vaping Use Never Used 09/19/23 08:19 Thrive Assessment: Date of Thrive Assessment Date Thrive assessed 07/10/23 09/19/23 08:19 Const General: cooperative and healthy appearing Nutritional Appearance: well nourished Orientation/consciousness: patient oriented x3 Limitations: no limitations HENMT Head: Yes normal to inspection Eyes General: appearance normal, both eyes and all related structures Neck Neck: Yes normal visual inspection Chest Chest palpation & inspection: normal palpation of entire chest wall Resp Effort & Inspection: normal respiratory effort Neuro General: patient oriented x3 Assessment and Plan Assessment & Plan (1) Urinary tract infection: Code(s): N39.0 - Urinary tract infection, site not specified Plan: ER note reviewed. Continue current medications. Medications: Refilled semaglutide (weight loss) (Deshawn) administer weeks 1 through 4 of therapy 0.25 mg (0.5 mL) subcut QWEEK 2 mL 0RF 4 weeks E66.9 - Obesity, unspecified, Z68.37 - Body mass index [BMI] 37.0- 37.9, adult sumatriptan succinate do not exceed 8 doses per 24 hrs 25 mg PO Q2-4H PRN 9 tabs 0RF migraine headache 30 days Synthroid (levothyroxine) 100 mcg PO DAILY 30 tabs 4RF NS Coding Level of Care Code Est Pt Level 3 (59175) Complex EM visit Add On G2211 Diagnoses Urinary tract infection N39.0
== END 2023-09-19 08:53 | disposition home or self-care (01) ==
PROVIDERS: PCP Internal Medicine; Visit Provider Internal Medicine
DX: N39.0 Urinary tract infection, site not specified (principal)
CPT/HCPCS: 99213; G2211

== ENCOUNTER 2023-09-19 08:31 | Outpatient (REF) | payer OTHER, SELFPAY ==
[2023-09-19 09:46] LABS: HIV AB/AG Nonreactive (Nonreactive); HIV Num 1 0.05 S/CO (0.00-0.99); Hepatitis B Surface Antigen Negative (Negative); Syphilis Screen Nonreactive (Nonreactive); ~HepC Num1 0.05 S/CO (0.00-0.79); ~Hepatitis C Antibody Nonreactive (Nonreactive)
[2023-09-19 09:51] LABS: Thyroid Stimulating Hormone 18.87 uIU/mL (0.32-4.0); Vitamin D 25-OH Total 14.9 ng/mL (>30)
== END 2023-09-19 08:32 | disposition home or self-care (01) ==
LOC: HO.LAB 08:31
PROVIDERS: Nurse Practitioner Family; Absent Provider Internal Medicine Endocrinology, Diabetes & Metabolism; PCP Internal Medicine; Visit Provider Advanced Practice Midwife
DX: Z11.3 Encounter for screening for infections with a predominantly sexual mode of transmission (principal); Z87.42 Personal history of other diseases of the female genital tract; Z01.419 Encounter for gynecological examination (general) (routine) without abnormal findings; E55.9 Vitamin D deficiency, unspecified; E03.9 Hypothyroidism, unspecified
CPT/HCPCS: 36415; 82306; 84443; 86780; 86803; 87340; 87389

== ENCOUNTER 2023-12-23 14:13 | Outpatient (REF) | payer OTHER, SELFPAY ==
[2023-12-23 16:04] LABS: Free T4 (Free Thyroxine) 0.64 ng/dL (0.71-1.85); Thyroid Stimulating Hormone 15.06 uIU/mL (0.32-4.0); Vitamin D 25-OH Total 17.8 ng/mL (>30)
== END 2023-12-23 14:14 | disposition home or self-care (01) ==
LOC: HO.LAB 14:13
PROVIDERS: PCP Internal Medicine; Visit Provider Internal Medicine Endocrinology, Diabetes & Metabolism
DX: E03.9 Hypothyroidism, unspecified (principal); E55.9 Vitamin D deficiency, unspecified; Z79.899 Other long term (current) drug therapy
CPT/HCPCS: 36415; 82306; 84439; 84443; 99212

== ENCOUNTER 2023-12-23 15:56 | Outpatient (AMB) | payer OTHER, SELFPAY ==
[2023-12-23 16:08] VITALS: BP 96/68; PULSE 107; BMI 38.4
--- NOTE | 2023-12-23 16:08 | A.OFFVIS_ITS ---
Vital Signs 12/23/23 16:08 Height 5 ft Weight 196 lb 10.437 oz BMI 38.4 BP 96/68 Blood Pressure Location Lt brachial Position Sitting Pulse 107 H Pulse Source Pulse Oximeter Intake Visit Reasons: Hypothyroidism Intake Note: Patient present today for Hypothyroidism follow up visit. 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 First diagnosed with Hypothyroidism many years ago. Did have labs completed 08/19/17 with TSH 60.87 with TGAb positive at 25 and TPO antibodies po sitive at 291. She was started on thyroid hormone Levothyroxine 150 mcg PO daily. Since beginning the medication her labs have fluctuated drastically due to poor compliance. After our initial visit she began taking the medication daily, first thing in the morning on an empty stomach. Labs were repeated 6 weeks later with TSH suppressed to 0.01. Her dose was then decreased to 112 mcg PO daily. Labs were repeated and TSH was relatively unchanged at 0.02. Her dose was then decreased to 100 mcg PO daily, and further to 88 mcg daily, which she remains on now. She is currently on 100 mcg of levothyroxine for She has been noncompliant with levothyroxine She did not have her labs repeated. Biotin Does use Biotin almost daily. Stops Biotin for at least 1 week prior to l ab draws. No recent pertinent labs. Is also on vitamin D3 2000 IU per day [facility] Medical History Hx of abnormal cervical Pap smear Well woman exam with routine gynecological exam Screen for sexually transmitted diseases Cervical cancer screening Obesity (BMI 30.0-34.9) Adult general medical exam Injury of right hand Right hand pain Chills Myalgia Sinus pain Chest congestion Cough Vomiting Fatigue COVID-19 Nausea Restless leg syndrome Shortness of breath Vitamin D deficiency Hypothyroidism Vitamin B 12 deficiency Surgical History No pertinent past surgical history Family History Father Essential hypertension Mother Diabetes Depression Sister Gestational diabetes Maternal Grandmother Colon cancer Maternal Grandfather Colon cancer Maternal Aunt Breast cancer Social History Household Members: Children Housing: Apartment Are you a primary elderly caregiver to a significant other at home: No Do you presently have visiting nurse or other home services: No Alcohol intake: current Alcohol intake frequency: holidays/special occasions only Alcohol type: wine and other Patient Tobacco Use Status: Former Tobacco user Tobacco use type: Cigarette e-Cigarette/Vaping Use: Never Used Second Hand Smoke Exposure: No service: No Current occupational status: employed Current occupation: [employer] Current occupational exposures/hazards: No Cognitive needs: No Hearing needs: No Vision needs: Yes Female Reproductive History Menstrual Age of Menarche: 14 Physical Exam Vital Signs: BMI result Body Mass Index 38.4 Const Other: Thyroid gland is normal size weighs about 15 g . There are no thyroid nodules palpated Assessment & Plan Assessment & Plan (1) Hypothyroidism: Code(s): E03.9 - Hypothyroidism, unspecified Category: Medical Qualifiers: Hypothyroidism type: acquired Qualified Code(s): E03.9 - H ypothyroidism, unspecified Plan: This is a 33-year-old female with a history of hypothyroidism being treated with 100 mcg levothyroxine found recently to have a elevated TSH.Has been noncompliant with levothyroxine Plan is to stressed compliance with branded Synthroid 100 mcg q.d. . Recheck TSH and free T4 in 6 weeks time adjust Synthroid accordingly (2) Hypovitaminosis D: Code(s): E55.9 - Vitamin D deficiency, unspecified Category: Medical Plan: Currently on 2000 IU of vitamin D3 with low 25 hydroxy vitamin-D levels. Noncompliant with the vitamin-D Plan is to stress compliance with the vitamin D3 and recheck 25 hydroxy vitamin- D levels in 6 weeks Orders: Orders Thyroid Stimulating Hormone 6 Weeks E03.9 - Hypothyroidism, unspecified, E55.9 - Vitamin D deficiency, unspecified Vitamin D 25-OH Total 6 Weeks E03.9 - Hypothyroidism, unspecified, E55.9 - Vitamin D deficiency, unspecified Free T4 (Free Thyroxine) 6 Weeks E03.9 - Hypothyroidism, unspecified, E55.9 - Vitamin D deficiency, unspecified Medications: Refilled cholecalciferol (vitamin D3) 50 mcg PO DAILY 90 days 90 caps 1RF E55.9 - Vitamin D deficiency, unspecified Coding Level of Care Code Est Pt Level 3 (23975) Diagnoses Acquired hypothyroidism E03.9 Hypothyroidism type: acquired Hypovitaminosis D E55.9
== END 2023-12-23 16:23 | disposition home or self-care (01) ==
PROVIDERS: PCP Internal Medicine; Visit Provider Internal Medicine Endocrinology, Diabetes & Metabolism
DX: E03.9 Hypothyroidism, unspecified (principal); E55.9 Vitamin D deficiency, unspecified
CPT/HCPCS: 99213

== ENCOUNTER 2024-02-05 14:38 | Outpatient (AMB) | payer OTHER, SELFPAY ==
[2024-02-05 14:40] VITALS: BP 110/72; BMI 38.3
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
== END 2024-02-05 15:20 | disposition home or self-care (01) ==
PROVIDERS: PCP Internal Medicine; Visit Provider Internal Medicine
DX: Z00.00 Encounter for general adult medical examination without abnormal findings (principal); F33.0 Major depressive disorder, recurrent, mild; Z23 Encounter for immunization

== ENCOUNTER → 2024-02-05 14:38 | Outpatient (BNVA) | payer OTHER, SELFPAY | PROVIDERS: PCP Internal Medicine; Visit Provider Internal Medicine | DX: Z00.00 Encounter for general adult medical examination without abnormal findings (principal); Z23 Encounter for immunization; F33.0 Major depressive disorder, recurrent, mild | CPT/HCPCS: 90471; 90715; 96127; 99395 ==

== ENCOUNTER 2024-02-11 06:56 | Outpatient (REF) | payer OTHER, SELFPAY ==
[2024-02-11 07:14] LABS: MANUAL DIFF FLAG NO
[2024-02-11 07:48] LABS: Basophils Percent Auto 0.4 % (0-2); Eosinophils Absolute Auto 0.1 X10*3/uL (0.0-0.4); Eosinophils Percent Auto 2.7 % (0-4); Hematocrit 37.4 % (37.0-47.0); Hemoglobin 12.5 g/dl (12.0-16.0); Imm Gran Abs Auto 0.01 X10*3/uL (0.00-0.03); Imm Gran Pct Auto 0.2 % (0.0-0.4); Lymphocytes Absolute Auto 1.5 X10*3/uL (1.2-4.9); Lymphocytes Percent Auto 32.2 % (20-40); Mean Corpuscular HGB Conc 33.4 g/dl (31.0-35.0); Mean Corpuscular Hemoglobin 31.3 pg (27.0-33.0); Mean Corpuscular Volume 93.7 fL (80.0-98.0); Mean Platelet Volume 10.2 fL (9.4-12.3); Monocytes Absolute Auto 0.4 X10*3/uL (0.1-1.2); Neutrophils Absolute Auto 2.7 x10*3/uL (2.0-8.3); Neutrophils Percent Auto 56.5 % (45-73); Platelet Count 321 X10*3/uL (160-400); Red Blood Count 3.99 X10*6/uL (4.20-5.50); Red Cell Distribution Width 12.2 % (11.0-16.0); White Blood Count 4.8 X10*3/uL (4.8-10.8)
[2024-02-11 08:39] LABS: Alanine Aminotransferase 27 U/L (0-31); Albumin Level 3.7 g/dL (3.5-5.0); Alkaline Phosphatase 65 U/L (39-117); Anion Gap 10 (12-20); Aspartate Amino Transferase 24 U/L (5-31); Bilirubin Total 0.6 mg/dL (0.0-1.0); Blood Urea Nitrogen 9 mg/dL (9-16); Calcium 8.8 mg/dL (8.4-10.2); Carbon Dioxide 25 mmol/L (22-29); Chloride 108 mmol/L (96-108); Cholesterol 169 mg/dL (<200); Estimated Glomerular Filt Rate > 60; Glucose Fasting 109 mg/dL (60-99); HDL Cholesterol 53 mg/dL (>40); LDL Cholesterol Calculated 103 mg/dL (<100); Potassium 4.7 mmol/L (3.3-5.1); Sodium 138 mmol/L (135-145); Total Protein 6.7 g/dL (6.5-8.0); Triglycerides 67 mg/dL (<150)
[2024-02-11 08:57] LABS: Free T4 (Free Thyroxine) 1.16 ng/dL (0.71-1.85); Thyroid Stimulating Hormone 2.12 uIU/mL (0.32-4.0)
== END 2024-02-11 06:57 | disposition home or self-care (01) ==
LOC: HO.LAB 06:56
PROVIDERS: Internal Medicine Endocrinology, Diabetes & Metabolism; PCP Internal Medicine; Visit Provider Internal Medicine
DX: Z00.00 Encounter for general adult medical examination without abnormal findings (principal); E55.9 Vitamin D deficiency, unspecified; E03.9 Hypothyroidism, unspecified; D64.9 Anemia, unspecified
CPT/HCPCS: 36415; 80053; 80061; 82306; 84439; 84443; 85025

== ENCOUNTER 2024-03-25 12:57 | Outpatient (AMB) | payer OTHER, SELFPAY ==
--- NOTE | 2024-03-25 12:59 | MHC.OFFVIS ---
Vital Signs 03/25/24 13:02 Height 5 ft Weight 198 lb 6.656 oz BMI 38.7 BP 98/54 L Blood Pressure Location Rt brachial Position Sitting Pulse 117 H Pulse Source Pulse Oximeter Intake Visit Reasons: f/u hypothyroidism/vitamin D Intake Note: Patient present today for Hypothyroidism follow up visit. Patient reports headaches for a few days and dizziness that occurred 2 hours ago. She states she does not feel dizzy or have headaches at the moment. 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 . Also vitamin-D deficiency First diagnosed with Hypothyroidism many years ago. Did have labs completed 08/19/17 with TSH 60.87 with TGAb positive at 25 and TPO antibodies positive at 291. She was started on thyroid hormone Levothyroxine 150 mcg PO daily. Since beginning the medication her labs have fluctuated drastically due to poor compliance. After our initial visit she began taking the medication daily, first thing in the morning on an empty stomach. Labs were repeated 6 weeks later with TSH suppressed to 0.01. Her dose was then decreased to 112 mcg PO daily. Labs were repeated and TSH was relatively unchanged at 0.02. Her dose was then decreased to 100 mcg PO daily, and further to 88 mcg daily, which she remains on now. She is currently on 100 mcg of levothyroxine for She has been noncompliant with levothyroxine She did not have her labs repeated. Biotin Does use Biotin almost daily. Stops Biotin for at least 1 week prior to lab draws. No recent pertinent labs. Is also on vitamin D3 2000 IU per day [facility] Medical History Hx of abnormal cervical Pap smear Well woman exam with routine gynecological exam Screen for sexually transmitted diseases Cervical cancer screening Obesity (BMI 30.0-34.9) Adult general medical exam Injury of right hand Right hand pain Chills Myalgia Sinus pain Chest congestion Cough Vomiting Fatigue COVID-19 Nausea Restless leg syndrome Shortness of breath Vitamin D deficiency Hypothyroidism Vitamin B 12 deficiency Surgical History No pertinent past surgical history Family History Father Essential hypertension Mother Diabetes Depression Sister Gestational diabetes Maternal Grandmother Colon cancer Maternal Grandfather Colon cancer Maternal Aunt Breast cancer Social History Household Members: Children Housing: Apartment Are you a primary director of managed care to a significant other at home: No Do you presently have visiting nurse or other home services: No Alcohol intake: current Alcohol intake frequency: holidays/special occasions only Alcohol type: wine and other Patient Tobacco Use Status: Former Tobacco user Tobacco use type: Cigarette e-Cigarette/Vaping Use: Never Used Second Hand Smoke Exposure: No service: No Current occupational status: employed Current occupation: [employer] Current occupational exposures/hazards: No Cognitive needs: No Hearing needs: No Vision needs: Yes Female Reproductive History Menstrual Age of Menarche: 14 Physical Exam Const Other: Thyroid gland is normal size weighs about 15 g . There are no thyroid nodules palpated Assessment & Plan Assessment & Plan (1) Hypothyroidism: Code(s): E03.9 - Hypothyroidism, unspecified Category: Medical Qualifiers: Hypothyroidism type: acquired Qualified Code(s): E03.9 - Hypothyroidism, unspecified Plan: This is a 33-year-old female with a history of hypothyroidism being treated with 100 mcg levothyroxine . She appears to be clinically and biochemically euthyroid Plan is to continue the current treatment. At this point, patient returned back to the care of her primary care provider returned back to endocrinology as needed (2) Hypovitaminosis D: Code(s): E55.9 - Vitamin D deficiency, unspecified Category: Medical Plan: Currently on 2000 IU of vitamin D3 with low 25 hydroxy vitamin-D levels. Claims compliance with the vitamin-D Plan is to increase the vitamin D3 to 5000 IU per day and recheck 25 hydroxy vitamin-D in 3 months Orders: Orders Vitamin D 25-OH Total 3 Months E55.9 - Vitamin D deficiency, unspecified Medications: New cholecalciferol (vitamin D3) 125 mcg PO DAILY 30 caps 4RF Discontinued cholecalciferol (vitamin D3) Discontinued Reason: Doctor's Order 50 mcg PO DAILY 90 days 90 caps 1RF E55.9 - Vitamin D deficiency, unspecified Coding Level of Care Code Est Pt Level 3 (44429) Diagnoses Acquired hypothyroidism E03.9 Hypothyroidism type: acquired Hypovitaminosis D E55.9
[2024-03-25 13:02] VITALS: BP 98/54; PULSE 117; BMI 38.7
--- OUTSIDE RECORDS SUMMARY | 2024-03-25 14:50 | XMS_ITS | Clinical Summary ---
Author Organization [employer] Address [address] [place] [address] [address] [place] [address] Care Team Providers Care Funeral Sales Manager Name Role Phone Unavailable Primary Care Provider Unavailabl e Allergies No known active allergies Medications polyvinyl alcohol (Liquifilm Tears) 1.4 % ophthalmic solution one drop in right eye 6 times per day 01/19/2021 Active levothyroxine (Tirosint) 112 MCG capsule Take 1 capsule by mouth. 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 Immunizations Name Administration Dates Next Due DTaP 06/01/2012 Tdap 06/01/2012 Social History Tobacco Use Types Packs/Day Years Used Date Smoking Tobacco: Former Cigarettes Tobacco Cessation:Counseling Given: Not Answered Comments Unknown Sex and Gender Information Value Date Recorded Sex Assigned at Female 01/01/2022 10:19 AM EDT Legal Sex Female 10:19 AM EDT Gender Identity Female 01/01/2022 10:19 AM EDT Sexual Orientation Bisexual 01/01/2022 10 :19 AM EDT Plan of Treatment Health Maintenance Due Date Last Done Comments Depression Screening 1991 HIV Screening 1991 SDOH Screening 1991 Alcohol/Substance Use Screening 2003 Tobacco Screening 2003 Hepatitis C Screening 06/06/2009 Hepatitis B Vaccines (1 of 3 - 19+ 3-dose series) 06/06/2010 Pap Smear 06/06/2012 Cervical Cancer Screening 06/06/2021 HPV/Cotest 06/06/2021 DTaP/Tdap/Td Vaccines (3 - T d or Tdap) 06/01/2022 06/01/2012, 06/01/2012 COVID-19 Vaccine (1 - 2024-2 5 season) 2023 Influenza Vaccine (#1) 2023 Zoster Vaccines (1 of 2) 06/06/2041 RSV Patients and Patients Aged 60 years or older (1 - 1-dose 75+ series) 06/06/2066 HIB Vaccines Aged Out No longer eligi ble based on patient's age to complete this topic HPV Vaccines Aged Out No longer eligi ble based on patient's age to complete this topic Hepatitis A Vaccines Aged Out No long er eligible based on patient's age to complete this topic IPV Vaccines Aged Out No longer eligi ble based on patient's age to complete this topic Meningococcal Vaccine Aged Out No janine roya eligible based on patient's age to complete this topic Pneumococcal Vaccine: Pediatrics (0 to 5 Years) and At-Risk Patients (6 to 64 Years) Aged Out No longer eligible b ased on patient's age to complete this topic RSV under 20 months Aged Out No longe r eligible based on patient's age to complete this topic Rotavirus Vaccines Aged Out No longer eligible based on patient's age to complete this topic Insurance [facility]
== END 2024-03-25 13:15 | disposition home or self-care (01) ==
PROVIDERS: PCP Internal Medicine; Visit Provider Internal Medicine Endocrinology, Diabetes & Metabolism
DX: E03.9 Hypothyroidism, unspecified (principal); E55.9 Vitamin D deficiency, unspecified
CPT/HCPCS: 99213

== ENCOUNTER → 2024-03-25 12:57 | Outpatient (BNVA) | payer OTHER, SELFPAY | PROVIDERS: PCP Internal Medicine; Visit Provider Internal Medicine Endocrinology, Diabetes & Metabolism | DX: E06.3 Autoimmune thyroiditis (principal); E55.9 Vitamin D deficiency, unspecified | CPT/HCPCS: 99212 ==

== ENCOUNTER 2024-03-26 13:38 | Outpatient (REF) | payer OTHER, SELFPAY ==
--- OUTSIDE RECORDS SUMMARY | 2024-03-26 17:40 | XMS_ITS | Encounter Summary ---
Author Organization [employer] Address [address] [place] [address] [address] [place] [address] Care Team Providers Care Commercial Leasing Agent Name Role Phone Unavailable Primary Care Provider Unavailabl e Encounter Details Date Type Department Care Team (Latest Contact Info) Description 03/26/2024 Travel Social History Tobacco Use Types Packs/Day Years Used Date Smoking Tobacco: Former Cigarettes Comments Unknown Sex and Gender Information Value Date Recorded Sex Assigned at Female 01/01/2022 10:19 AM EDT Legal Sex Female 10:19 AM EDT Gender Identity Female 01/01/2022 10:19 AM EDT Sexual Orientation Bisexual 01/01/2022 10 :19 AM EDT documented as of this encounter Plan of Treatment Upcoming Encounters Date Type Department Care Team (Late st Contact Info) Description 03/31/2024 3:30 PM EST Office Visit [facility] [address] [place] [address] Malini Uribe, JENNIFER [address] [place] [address] documented as of this encounter Visit Diagnoses Not on filedocumented in this encounter
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
--- OUTSIDE RECORDS SUMMARY | 2024-03-26 17:40 | XMS_ITS | Clinical Summary ---
Author Organization [employer] Address [address] [facility] [address] [place] [address] Care Team Providers Care Research Biologist Name Role Phone Unavailable Primary Care Provider Unavailabl e Allergies No known active allergies Medications polyvinyl alcohol (Liquifilm Tears) 1.4 % ophthalmic solution one drop in right eye 6 times per day 01/20/20 21 Active levothyroxine (Tirosint) 112 MCG capsule Take 1 capsule by mouth. Active prednisoLONE acetate (Pred-Forte) 1 % ophthalmic suspensionIndi cations:Acute anterior uveitis of both eyes Administer 1 drop into both eyes 6 (six) times a day for 14 days. 15 mL 1 03/26/19 25 025 Active prednisoLONE acetate (Pred-Forte) 1 % ophthalmic suspensionIndi cations:Acute anterior uveitis of both eyes Administer 1 drop into both eyes 4 times daily for 14 days. 5 mL 03/26/19 25 025 Discontinued Active Problems Problem Noted Date Diagnosed Date Vitreous opacities of left eye 03/13/2022 Myelinated nerve fibers of optic disc 06/22/2018 Encounters Date Type Department Care Team Description 03/26/2024 3:30 PM EST Office Visit [facility] [address] [place] [address] Malini Uribe, OD Acute anterior uveitis of both eyes (Primary Dx) 03/26/2024 Travel from Last 3 Months Immunizations Name Administration Dates Next Due DTaP [...] 10 :19 AM EDT Plan of Treatment Upcoming Encounters Date Type Department Care Team (Late st Contact Info) Description 03/31/2024 3:30 PM EST Office Visit [facility] [address] [place] [address] Malini Uribe, OD [address] [place] [address] Health Maintenance Due Date Last Done Comments Depression Screening 1991 HIV Screening 1991 SDOH Screening 1991 Alcohol/Substance Use Screening 2003 Family Planning (PISQ) 06/06/2006 Hepatitis C Screening 06/06/2009 Hepatitis B Vaccines (1 of 3 - 19+ 3-dose series) 06/06/2010 Pap Smear 06/06/2012 Cervical Cancer Screening 06/06/2021 HPV/Cotest 06/06/2021 COVID-19 Vaccine (1 - 2023-2 5 season) 2023 Influenza Vaccine (#1) 2023 12/03/2017 Tobacco Screening 03/26/2025 03/26/2024 DTaP/Tdap/Td Vaccines (4 - T d or Tdap) 02/04/2034 02/05/2024, 06/01/2012, 06/01/2012 Zoster Vaccines (1 of 2) 06/06/2041 RSV [...] patient's age to complete this topic [place] [address] [place] [address] ACO
[2024-03-26 20:23] LABS: Bacterial Vaginosis PCR NEGATIVE (Negative); Candida Group PCR NOT DETECTED (Not Detect); Candida glab krusei PCR NOT DETECTED (Not Detect); Trichomonas vaginalis PCR NOT DETECTED (Not Detect)
[2024-03-27 15:45] LABS: CT PCR NOT DETECTED (Not Detect.); NG PCR NOT DETECTED (Not Detect.)
== END 2024-03-26 13:39 | disposition home or self-care (01) ==
LOC: HO.LAB 13:38
PROVIDERS: PCP Internal Medicine; Visit Provider Advanced Practice Midwife
DX: Z01.419 Encounter for gynecological examination (general) (routine) without abnormal findings (principal); N89.8 Other specified noninflammatory disorders of vagina; Z20.2 Contact with and (suspected) exposure to infections with a predominantly sexual mode of transmission; E66.9 Obesity, unspecified; Z68.37 Body mass index [BMI] 37.0-37.9, adult; R73.03 Prediabetes
CPT/HCPCS: 81515; 87491; 87591; 99395; 99459

== ENCOUNTER 2024-03-26 13:38 | Outpatient (AMB) | payer OTHER, SELFPAY ==
[2024-03-26 13:55] VITALS: BP 118/70; BMI 38.7
--- NOTE | 2024-03-26 13:55 | A.OFFVIS_ITS ---
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 Sprayer Required: No Machined Parts Metal Sprayer Services: Machined Parts Metal Sprayer Present Information Interpreted: clinical only Grinder And Honer Operator Automatic: Grinder And Honer Operator Automatic Present Allergies No Known Allergies [No Known Allergies*] Allergy (Verified 03/26/24 13:56) Medication List - Last Reconciled 03/26/24 by Olamide Quiroga CNM cholecalciferol (vitamin D3) 125 mcg PO DAILY sumatriptan succinate 25 mg PO Q2-4H PRN 30 days Synthroid (levothyroxine) 100 mcg PO DAILY NS Is last menstrual period known: Yes Last menstrual period: 03/10/24 HPI HPI 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 She is not having any cephalometric analyst concerns at all periods are nice and regular and come it beginning in the month in her last 1 was March 10. She is not sexually active at the moment and has not been for the last year she has not worried about STIs but she would appreciate getting the lab test just to be sure. She recently in February had her fasting lab work with her primary care provider and was told that she is now pre diabetes range. She did not have a bigger explanation about that but she has started eating better since then and has started working out in the gym 5 or 6 days a week and is doing a little bit of everything with treadmill did some St[employer] the other day and is doing everything she is feeling better too. She was seen Dr. El for her thyroid but since everything stable now she is just going to follow with her primary care provider. [facility] Medical History Hx of abnormal cervical Pap smear Well woman exam with routine gynecological exam Screen for sexually transmitted diseases Cervical cancer screening Obesity (BMI 30.0-34.9) Adult general medical exam Injury of right hand Right hand pain Chills Myalgia Sinus pain Chest congestion Cough Vomiting Fatigue COVID-19 Nausea Restless leg syndrome Shortness of breath Vitamin D deficiency Hypothyroidism Vitamin B 12 deficiency Surgical History No pertinent past surgical history Family History Father Essential hypertension Mother Diabetes Depression Sister Gestational diabetes Maternal Grandmother Colon cancer Maternal Grandfather Colon cancer Maternal Aunt Breast cancer Social History Household Members: Children Housing: Apartment Are you a primary account executive healthcare to a significant other at home: No Do you presently have visiting nurse or other home services: No Alcohol intake: current Alcohol intake frequency: holidays/special occasions only Alcohol type: wine and other Patient Tobacco Use Status: Former Tobacco user Tobacco use type: Cigarette e-Cigarette/Vaping Use: Never Used Second Hand Smoke Exposure: No service: No Current occupational status: employed 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 Current occupational exposures/hazards: No Cognitive needs: No Hearing needs: No Vision needs: Yes Female Reproductive History Menstrual Age of Menarche: 14 Duration of menses: 3-5 days Date of last menstrual period: 03/10/24 control method: none Total pregnancies: 3 Full term: 2 Date of last pap smear: 03/26/22 (negative) History of abnormal pap smear: Yes (ASCUS,LINDSAY I) Physical Exam Vital Signs: Last Vital Signs BP 118/70 03/26/24 13:55 BMI result Body Mass Index 38.7 Const General: healthy appearing, comfortable, no acute distress, well developed and alert Nutritional Appearance: average body habitus Orientation/consciousness: patient oriented x3 Limitations: no limitations HEENT Head: Yes normocephalic Neck Neck: Yes normal visual inspection Chest Chest palpation & inspection: normal inspection of the chest Breast/axilla inspection: normal inspection of the breasts and normal inspection of the axillae Breast/axilla palpation: normal palpation of the breasts and normal palpation of the axillae Resp Effort & Inspection: normal respiratory effort GI Inspection: Yes normal to inspection, No Abdominal wall edema and No distended Palpation (GI): Soft to palpation and nontender Other: External exam within normal limits vagina is pink and moist with clear discharge with some weight. Did not appear abnormal and maybe consistent with a day surrounding ovulation cervix appeared pink and smooth and nulliparous. Cervix long thin closed mobile nontender uterus midposition mobile nontender not enlarged good tone with Kegel. General: Yes bladder normal to palpation External Female Exam: normal external appearance and normal appearance of the urethra Speculum Exam - Vagina: normal appearance of the vagina, normal palpation and normal vaginal discharge Speculum Exam - Cervix: normal appearance of the cervix, normal palpation and nontender Bimanual exam- vagina & uterus: normal bimanual exam, normal palpation, uterine size normal, bladder normal to palpation, consistency normal, normal palpation, uterine mobility normal, uterine shape normal, No Cervical tenderness present, non-tender and no cervical motion tenderness Bimanual Exam- Adnexa, other: normal adnexae, no masses, normal and No adnexal tenderness Neuro General: patient oriented x3 Results Reviewed Results Reviewed: FBS equals 107 02/2024. Name: Elaine Gonzalez Age/Sex: 31/F Attending: Olamide Quiroga CNM : 1990 Submitted by: Olamide Quiroga CNM Copies to: MR #: [id number] Status: DEP REF Collected: 03/23/22 Location: [facility] Received: 03/26/22 Interpretation Satisfactory for evaluation. Negative for intraepithelial lesion or malignancy. HPV mRNA E6/E7: NOT DETECTED This assay detects E6/E7 viral messenger RNA (mRNA) from 14 high-risk HPV types (16, 18, 31, 33, 35, 39, 45, 51, 52, 56, 58, 59, 66, 68) HPV testing performed by [employer], [place], [place]. See reference laboratory portion of the EMR for entire report. Clinical Information LMP: 03/09/22 Previous PAP test: 03/27/17, WNL Material Received ThinPrep-Cervical Electronically Signed By: Elizabeth Pritchett 04/02/22 1504 The Pap Test is a screening procedure with the inherent possibility of both false negative and false positive results. Results should be interpreted in the context of historic and current clinical findings. Reliability of the Pap Test is enhanced by performing the test on a regular repetitive basis. Patient: Elaine Gonzalez Age/Sex: 31/F [id number] MR#: [id number] Page 1 of 1 Assessment & Plan Assessment & Plan (1) Well woman exam with routine gynecological exam: Code(s): Z01.419 - Encounter for gynecological examination (general) (routine) without abnormal findings Category: Medical (2) Hx of abnormal cervical Pap smear: Comment: 2009,2010=cin1, 2012=ascus; all neg since then,03/23/2022 Pap is negative with negative HPV. Code(s): Z87.42 - Personal history of other diseases of the female genital tract Category: Medical (3) Class 2 obesity with body mass index (BMI) of 37.0 to 37.9 in adult: Code(s): E66.9 - Obesity, unspecified; Z68.37 - Body mass index [BMI] 37.0-37.9, adult Category: Medical (4) Encounter for screening examination for sexually transmitted disease: Code(s): Z11.3 - Encounter for screening for infections with a predominantly sexual mode of transmission Category: Medical (5) Prediabetes: Code(s): R73.03 - Prediabetes Category: Medical Plan -----Discussed in this visit the following: healthy balanced diet, regular and consistent exercise, getting recommended health screens, doing the best she can for her particular health concerns, kegel exercises, pap smear screening and followup recommendations, mammography screening and SBE, normal changes in cycles in her life stage--- .----she is not sexually active so she is not worried about control. She had an IUD in the past and it helped with periods but it was uncomfortable so she had it removed since she is not active now she does not need anything but if she became active she would use condoms in consider other options. She is feeling much better since she is working out and trying to eat better. Discussed that this is the best thing she can do for her elevated fasting blood sugar and she will see the results and feel the results. She will be following up with her primary care provider whenever she is supposed to.. ------she is not due for Pap smear as she has not had an abnormal 1 in over 10 years and her last 1s were negative with negative HPV . She accepted testing for STIs during the exam. And she is interested in getting blood work done and I ordered testing for HIV hep B hep C and syphilis for her.. Her discharge appeared completely normal and could represent the days around ovulation clear with a little bit of white discharge. Lab RTC 1 year or p.r.n. Orders: Orders Hepatitis B Surface Antigen Today E66.9 - Obesity, unspecified, R73.03 - Prediabetes, Z01.419 - Encounter for gynecological examination (general) (routine) without abnormal findings, Z11.3 - Encounter for screening for infections with a predominantly sexual mode of transmission, Z68.37 - Body mass index [BMI] 37.0-37.9, adult, Z87.42 - Personal history of other diseases of the female genital tract Syphilis Screen Today E66.9 - Obesity, unspecified, R73.03 - Prediabetes, Z01.419 - Encounter for gynecological examination (general) (routine) without abnormal findings, Z68.37 - Body mass index [BMI] 37.0-37.9, adult, Z87.42 - Personal history of other diseases of the female genital tract Hepatitis C Antibody Today E66.9 - Obesity, unspecified, R73.03 - Prediabetes, Z01.419 - Encounter for gynecological examination (general) (routine) without abnormal findings, Z68.37 - Body mass index [BMI] 37.0-37.9, adult, Z87.42 - Personal history of other diseases of the female genital tract HIV Ab/Ag Today E66.9 - Obesity, unspecified, R73.03 - Prediabetes, Z01.419 - Encounter for gynecological examination (general) (routine) without abnormal findings, Z68.37 - Body mass index [BMI] 37.0-37.9, adult, Z87.42 - Personal history of other diseases of the female genital tract Coding Level of Care Code Est Pt Prev Care 18-39y([id number]) Diagnoses Well woman exam with routine gynecological exam Z01.419 Hx of abnormal cervical Pap smear Z87.42 Class 2 obesity with body mass index (BMI) of 37.0 to 37.9 in adult E66.9; Z68.37 Encounter for screening examination for sexually transmitted disease Z11.3 Prediabetes R73.03
== END 2024-03-26 15:09 | disposition home or self-care (01) ==
PROVIDERS: PCP Internal Medicine; Visit Provider Advanced Practice Midwife
DX: Z01.419 Encounter for gynecological examination (general) (routine) without abnormal findings (principal); E66.9 Obesity, unspecified; Z68.37 Body mass index [BMI] 37.0-37.9, adult
CPT/HCPCS: 99395; 99459

== ENCOUNTER 2024-05-25 10:58 | Outpatient (REF) | payer OTHER, SELFPAY ==
[2024-05-25 12:49] LABS: Syphilis Screen Nonreactive (Nonreactive)
[2024-05-25 12:59] LABS: Vitamin D 25-OH Total 20.7 ng/mL (>30)
[2024-05-25 13:02] LABS: HBsAGNum1 0.25 S/CO (0.00-0.99); HIV AB/AG Nonreactive (Nonreactive); HIV Num 1 0.06 S/CO (0.00-0.99); Hepatitis B Surface Antigen Negative (Negative); ~HepC Num1 0.08 S/CO (0.00-0.79); ~Hepatitis C Antibody Nonreactive (Nonreactive)
== END 2024-05-25 10:59 | disposition home or self-care (01) ==
LOC: HO.LAB 10:58
PROVIDERS: Absent Provider Internal Medicine Endocrinology, Diabetes & Metabolism; PCP Internal Medicine; Visit Provider Advanced Practice Midwife
DX: Z01.419 Encounter for gynecological examination (general) (routine) without abnormal findings (principal); E55.9 Vitamin D deficiency, unspecified; Z87.42 Personal history of other diseases of the female genital tract; E66.9 Obesity, unspecified; Z68.37 Body mass index [BMI] 37.0-37.9, adult; R73.03 Prediabetes; Z11.3 Encounter for screening for infections with a predominantly sexual mode of transmission
CPT/HCPCS: 36415; 82306; 86780; 86803; 87340; 87389

== ENCOUNTER 2024-07-23 12:59 | Outpatient (AMB) | payer OTHER, SELFPAY ==
--- OUTSIDE RECORDS SUMMARY | 2024-07-23 13:02 | XMS_ITS | Clinical Summary ---
Author Organization [employer] Address [address] [place] [address] [address] [place] [address] Care Team Providers Care Lumber Planer Name Role Phone Unavailable Primary Care Provider [...] Encounters Date Type Department Care Team Description 06/16/2024 Telephone [facility] [address] [place] [address] Malini Uribe OD from Last 3 Months Immunizations Immunization Administration Dates Next Due DTaP 06/01/2012 Tdap [...] 1991 HIV Screening 1991 SDOH Screening 1991 Disability Screening 1991 Alcohol/Substance Use Screening 2003 Family Planning (PISQ) 06/06/2006 Hepatitis C Screening 06/06/2009 Hepatitis B Vaccines (1 of 3 - 19+ 3-dose series) 06/06/2010 Pap Smear 06/06/2012 Cervical Cancer Screening 06/06/2021 HPV/Cotest 06/06/2021 COVID-19 Vaccine (1 - 2023-2 5 season) 2023 Influenza Vaccine (#1) 2023 12/03/2017 Tobacco Screening 04/07/2025 04/07/2024 DTaP/Tdap/Td Vaccines (4 - T d or [...] patient's age to complete this topic Meningococcal B Vaccine Aged Out No l onger eligible based on patient's age to complete this topic Meningococcal Vaccine Aged Out No janine roya eligible based on patient's age to complete this topic Pneumococcal Vaccine: Pediatrics (0 to 5 Years) and At-Risk Patients (6 to 49) Years) Aged Out No longer eligible b ased on patient's age to complete this topic RSV under 20 months Aged Out No longe r eligible based on patient's age to complete this topic Rotavirus Vaccines Aged Out No longer eligible based on patient's age to complete this topic Insurance [facility]
[2024-07-23 13:03] VITALS: BP 118/64; PULSE 91; O2SAT 97; BMI 35.5
--- NOTE | 2024-07-23 13:03 | A.OFFVIS_ITS ---
Vital Signs 07/23/24 13:03 Height 5 ft Weight 181 lb 14.102 oz BMI 35.5 BP 118/64 Blood Pressure Location Lt brachial Position Sitting Pulse 91 Pulse Source Pulse Oximeter Pulse Oximetry (%) 97 Oxygen Delivery Method Room Air Intake Visit Reasons: Hypothyroidism Intake Note: Patient present today for Hypothyroidism follow up visit. Allergies No Known Allergies [No Known Allergies*] Allergy (Verified 07/23/24 13:05) Medication List - Last Reconciled 07/23/24 by Alex El MD cholecalciferol (vitamin D3) 125 mcg PO DAILY levothyroxine 100 mcg PO DAILY sumatriptan succinate 25 mg PO Q2-4H PRN 30 days HPI Comments Details: 34 YO Female with vitamin-D deficiency. She has primary hypothyroidism was currently on 100 mcg of levothyroxine. She was referred back to her primary care provider for management of the hypothyroidism previously At last visit, her vitamin D3 was increased to 5000 IU per day Admits to noncompliance with the vitamin D3 The patient is a 34-year-old female presenting with vitamin D deficiency. Diagnosis was due to persistently low serum vitamin D levels over several assessments; they incrementally increased from 17 ng/mL to 19 ng/mL and now measure 20 ng/mL. Despite an attempt to correct this through oral vitamin D 5000 IU supplementation, the patient reports inconsistent intake, often forgetting due to not taking it with her thyroid medication. 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 Her hypothyroidism is controlled, evident from normal thyroid function tests in February. There is consideration of malabsorption syndrome due to unresponsive vitamin D levels, but no confirming diagnostics have been conducted yet. Advice to improve compliance and regular testing of vitamin D levels with her primary care doctor were highlighted during this visit. [facility] Medical History Hx of abnormal cervical Pap smear Well woman exam with routine gynecological exam Screen for sexually transmitted diseases Cervical cancer screening Obesity (BMI 30.0-34.9) Adult general medical exam Injury of right hand Right hand pain Chills Myalgia Sinus pain Chest congestion Cough Vomiting Fatigue COVID-19 Nausea Restless leg syndrome Shortness of breath Vitamin D deficiency Hypothyroidism Vitamin B 12 deficiency Surgical History No pertinent past surgical history Family History Father Essential hypertension Mother Diabetes Depression Sister Gestational diabetes Maternal Grandmother Colon cancer Maternal Grandfather Colon cancer Maternal Aunt Breast cancer Social History Household Members: Children Housing: Apartment Are you a primary md do resident urgent care to a significant other at home: No Do you presently have visiting nurse or other home services: No Alcohol intake: current Alcohol intake frequency: holidays/special occasions only Alcohol type: wine and other Patient Tobacco Use Status: Former Tobacco user Tobacco use type: Cigarette e-Cigarette/Vaping Use: Never Used Second Hand Smoke Exposure: No service: No Current occupational status: employed Current occupation: [employer] Current occupational exposures/hazards: No Cognitive needs: No Hearing needs: No Vision needs: Yes Female Reproductive History Menstrual Age of Menarche: 14 Assessment & Plan Assessment & Plan (1) Hypovitaminosis D: Code(s): E55.9 - Vitamin D deficiency, unspecified Category: Medical Plan: Currently on 5000 IU of vitamin D3 with low 25 hydroxy vitamin-D levels. Claims compliance with the vitamin-D Plan is to stressed to the patient to be compliant with the vitamin D3 5000 IU. Patient can returned to the care of her primary care provider who can check a 25 hydroxy vitamin-D level in 12 weeks. Goal of 25 hydroxy vitamin-D is 30-50. If the vitamin-D remains under 30 , you can check a celiac sprue panel to rule out malabsorption and/or return the patient back to endocrinology.. If the 25 hydroxy vitamin-D level is above 70, decrease the vitamin D3 to 4000 IU per day and recheck the levels after 12 weeks. 1. Vitamin D deficiency The patient's vitamin D status is below optimal levels due to inconsistent supplementation adherence. Advised to take 5000 IU vitamin D daily to improve levels, with reassessment scheduled after three months of compliance. Future screenings for potential malabsorption issues were discussed if levels remain low despite consistent supplementation. The patient had an opportunity to ask questions regarding treatment plan. The patient expressed understanding and agreement with the above treatment plan. Patient was informed and verbally consented to the use of an ambient scribe for clinic note documentation during this visit. Coding Level of Care Code Est Pt Level 3 (95805) Diagnoses Hypovitaminosis D E55.9
== END 2024-07-23 13:30 | disposition home or self-care (01) ==
LOC: HO.ENCR 13:00
PROVIDERS: PCP Internal Medicine; Visit Provider Internal Medicine Endocrinology, Diabetes & Metabolism
DX: E55.9 Vitamin D deficiency, unspecified (principal)
CPT/HCPCS: 99213

== ENCOUNTER → 2024-07-23 12:59 | Outpatient (BNVA) | payer OTHER, SELFPAY | PROVIDERS: PCP Internal Medicine; Visit Provider Internal Medicine Endocrinology, Diabetes & Metabolism | DX: E55.9 Vitamin D deficiency, unspecified (principal) | CPT/HCPCS: 99212 ==

== ENCOUNTER 2024-10-12 11:17 | Emergency (ER) | payer SELFPAY ==
--- NOTE | ~2024-10-12 | CT_ITS ---
EXAMINATION: CT CERVICAL SPINE WITHOUT CONTRAST CLINICAL INFORMATION: Neck pain. COMPARISON: November 29, 2016. TECHNIQUE: Contiguous axial images through the cervical spine using 2 mm collimation with bone and soft tissue algorithm. Sagittal and coronal reformatted images acquired. DLP: 375.[address] examination was performed using dose optimization techniques as appropriate, variously including the following: *Automated exposure control *Adjustment of mA and/or kV according to patient size (this includes techniques or standardized protocols for targeted exams where dose is matched to indication/reason for exam; i.e. extremities or head) *Use of iterative reconstruction technique FINDINGS: Craniocervical junction is intact with normal alignment between the occipital condyles and lateral masses of C1. Reverse curvature apex at C5. C1 is intact. C2 is intact. C3 is intact. C4 is intact. C5 is intact. C6 is intact. C7 is intact. No prevertebral compartment hematoma. Tympanic cavities and mastoid cells are aerated. Nonspecific mild prominent cervical lymph nodes. CT/CT cervical spine wo IV con IMPRESSION: No acute fracture or trauma-related listhesis. Kyphotic deformity apex at C5. Fleischner guidelines were followed. Electronically signed by: Jayce Diallo MD 10/12/2024 01:08 PM EDT
[2024-10-12 12:36] VITALS: BP 132/64; PULSE 78; RESP 18; TEMP 36.4; O2SAT 98; BMI 34.4
--- NOTE | 2024-10-12 12:37 | ED_ITS ---
HPI - General Adult General Chief complaint: Back Pain/Injury Stated complaint: shooting neck/back pain, cant get out of bed Time Seen by Provider: 10/12/24 17:01 Source: patient Mode of arrival: ambulatory Limitations: no limitations History of Present Illness ED Provider: Loretta Villegas PA-C HPI narrative: Patient is a 34 year old assigned female at with a history of migraines, shingles, asthma, and MDD presenting to the emergency department today with neck pain and upper back stiffness. Patient states that she woke up on 10/11/2024 with lower neck and upper back stiffness. Patient states that she had an old script of flexeril and took a dose which helped for a bit. Patient denies any dizziness, lightheadedness, abdominal pain, nausea, vomiting, fever, chills, blurry vision, double vision, loss of vision, chest pain, difficulty breathing, shortness of breath, back pain, night sweats, pain with urination, increased urinary frequency, increased urinary urgency, blood in her urine or stool, syncope or a near syncopal episode, recent trauma or falls, bowel incontinence, bladder incontinence, or any other complaints at this time. Onset (ago): day(s) (1) Location: neck and back Relieving factors: none Exacerbating factors: none Associated symptoms: denies other symptoms Treatments prior to arrival: other (flexeril which helped some) Related Data Previous Rx's ?Medication ?Instructions ?Recorded sumatriptan succinate 25 mg tablet 25 mg PO Q2-4H PRN migraine 10/04/23 headache 30 days #9 tabs levothyroxine 100 mcg tablet 100 mcg PO DAILY #30 tabs 05/26/24 cholecalciferol (vitamin D3) 125 125 mcg PO DAILY #90 caps 06/23/24 mcg (5,000 unit) capsule cyclobenzaprine 5 mg tablet 5 mg PO TID PRN muscle spa sm 7 10/12/24 days #21 tabs prednisone 20 mg tablet 20 mg PO DAILY 7 days #7 tab s 10/12/24 Allergies Allergy/AdvReac Type Severity Reaction Status Date / Time No Known Allergies (No Known Allergy Verified 10/12/24 12:37 Allergies*) Review of Systems Constitutional: Constitutional: Reports no additional constitutional complaints, Denies chills, Denies fever(s) and Denies night sweats Eyes: Eyes: Reports no additional eye complaints, Denies blurry vision, Denies change in vision, Denies diplopia, Denies eye discharge, Denies loss of vision and Denies eye pain ENT: Denies dizziness and Reports neck pain Cardiovascular: Cardiovascular: Reports no additional cardiovascular complaints, Denies chest pain, Denies lightheadedness, Denies Loss of Consciousness and Denies dyspnea Respiratory: Respiratory: Reports no additional respiratory complaints and Denies dyspnea Gastrointestinal: Gastrointestinal: Reports no additional gastrointestinal complaints, Denies abdominal pain, Denies melena, Denies hematochezia, Denies change in bowel habits and Denies change in stool character Genitourinary: Genitourinary: Denies hematuria, Denies urinary frequency, Denies dysuria, Denies urinary incontinence, Denies urinary hesitancy and Denies urinary urgency Musculoskeletal: Musculoskeletal: Reports no additional musculoskeletal co mplaints, Reports neck pain, Denies numbness and Denies tingling Comments: upper back pain Neurologic: Denies dizziness, Denies loss of vision, Denies numbness and Denies tingling Psychiatric: Psychiatric: Reports no additional psychiatric complaints Endocrine: Endocrine: Reports no additional endocrine complaints Hematologic/Lymphatic: Hematologic/Lymphatic: Reports no additional hematologic/lymphatic complaints Allergic/Immunologic: Allergic/Immunologic: Reports no additional allergic/immunologic complaints [facility] Past Medical History Attestation statement: The following information was validated with the patient. Source: old records reviewed and nursing notes reviewed Medical History Hx of abnormal cervical Pap smear Well woman exam with routine gynecological exam Screen for sexually transmitted diseases Cervical cancer screening Obesity (BMI 30.0-34.9) Adult general medical exam Injury of right hand Right hand pain Chills Myalgia Sinus pain Chest congestion Cough Vomiting Fatigue COVID-19 Nausea Restless leg syndrome Shortness of breath Vitamin D deficiency Hypothyroidism Vitamin B 12 deficiency Surgical History No pertinent past surgical history Family History Family History Father Essential hypertension Mother Diabetes Depression Sister Gestational diabetes Maternal Grandmother Colon cancer Maternal Grandfather Colon cancer Maternal Aunt Breast cancer Social History Social History Household Members: Children Housing: Apartment Are you a primary manager managed care to a significant other at home: No Do you presently have visiting nurse or other home services: No Alcohol intake: current Alcohol intake frequency: holidays/special occasions only Alcohol type: wine and other Patient Tobacco Use Status: Former Tobacco user Tobacco use type: Cigarette e-Cigarette/Vaping Use: Never Used Second Hand Smoke Exposure: No Advance Directives: No Advance Directives Information Provided: Yes service: No Current occupational status: employed Current occupation: [employer] Current occupational exposures/hazards: No Cognitive needs: No Hearing needs: No Vision needs: Yes Physical Exam ED Vital Signs: Vital Signs - 24 hr 10/12/24 12:36 10/12/24 17:14 Temperature 97.6 F 97.6 F Pulse Rate 78 78 Respiratory Rate 18 18 Blood Pressure 132/64 132/64 Pulse Oximetry 98 98 Oxygen Delivery Method Room Air BMI result Body Mass Index 34.4 Const General: cooperative, no acute distress, alert and awake Nutritional Appearance: well nourished Orientation/consciousness: patient oriented x3 HENMT Head: Yes normal to inspection and Yes atraumatic Ears: hearing grossly normal bilaterally and external ears normal General nose exam: Normal external nose present, no nasal discharge noted and no epistaxis Face and sinus: Yes normal facial exam, No abrasion and No laceration Mouth: Normal oral and palatal mucosa present, no drooling and no muffled voice Eyes General: appearance normal, both eyes and all related structures Periorbital: periorbital findings normal Eyelids: Yes eyelids normal Conjunctivae: conjunctivae normal Pupils: Equal, round and reactive pupils present EOM: EOMs intact bilaterally Neck Neck: Yes normal visual inspection and Yes full ROM Resp Effort & Inspection: normal respiratory effort and able to speak in complete sentences Neuro General: patient oriented x3, moves all extremities and CN's II-XI intact bilate rally Cranial nerves: Yes Equal, round and reactive pupils present Cognition (Neuro): normal cognition Extrem General: Yes normal to inspection, Yes full ROM and Yes capillary refill normal Psych Appearance: grossly normal Mental Status: mental status grossly normal Affect: normal affect Attitude: cooperative Thought process: Normal thought process present Thought content: Normal thought content present Insight: Good insight present (Psych) Course Course Course Narrative: This is a rapid medical exam performed by Jaime Jolly NP: Additional HPI, ROS, PE not included below will be deferred to primary provider. Patient is a 34-year-old female with history of migraines, asthma, hypothyroidism presenting with complaint of pain to neck and upper back since yesterday. Took flexeril with some relief. Denies recent fall or other trauma. Mild headache for past week. Plan: CT c spine Medical Decision Making Medical Decision Making MDM Narrative: Patient is a 34 year old assigned female at with a history of migraines, shingles, asthma, and MDD presenting to the emergency department today with neck pain and upper back stiffness. Patient's physical exam was unremarkable. Patient's CT c-spine showed no acute process. Patient's clinical presentation is most consistent with a muscle spasm vs. strain vs. sprain. I explained my physical exam findings as well as all test results to the patient. I answered all questions asked by the patient. I stressed the importance of the patient taking her medication as directed (either prescribed or as the over the counter packaging recommends). I stressed the importance of the patient following up with her primary care provider. I stressed the importance of the patient returning to the emergency department immediately if her symptoms were to worsen or if she were to develop any dizziness, shortness of breath, difficulty breathing, chest pain, blurry vision, loss of vision, nausea, vomiting, abdominal pain, fever, chills, back pain, or any other complaints. Patient verbalized agreement and understanding with this treatment plan and discharge. Differential Diagnosis Differential Diagnoses: The differential diagnosis associated with the presentation includes Lower neck pain Upper back up Cervical spasm Cervical strain Cervical sprain Admission/Observation Consideration of admission/observation: Escalation of care including admission/observation considered Patient would have been admitted to the hospital had her work up had any findings where hospital admission was appropriate and her clinical presentation warranted hospital admission. Independent Interpretation I performed an independent interpretation of an: CT Scan Interpretation: My interpretation is in agreement with the radiologist's impression of these imaging studies. Report Number: [id number]: Total DLP = 387.00 mGy-cm EXAMINATION: CT CERVICAL SPINE WITHOUT CONTRAST CLINICAL INFORMATION: Neck pain. COMPARISON: November 29, 2016. TECHNIQUE: Contiguous axial images through the cervical spine using 2 mm collimation with bone and soft tissue algorithm. Sagittal and coronal reformatted images acquired. DLP: 375.[address] examination was performed using dose optimization techniques as appropriate, variously including the following: *Automated exposure control *Adjustment of mA and/or kV according to patient size (this includes techniques or standardized protocols for targeted exams where dose is matched to i ndication/reason for exam; i.e. extremities or head) *Use of iterative reconstruction technique FINDINGS: Craniocervical junction is intact with normal alignment between the occipital condyles and lateral masses of C1. Reverse curvature apex at C5. C1 is intact. C2 is intact. C3 is intact. C4 is intact. C5 is intact. C6 is intact. C7 is intact. No prevertebral compartment hematoma. Tympanic cavities and mastoid cells are aerated. Nonspecific mild prominent cervical lymph nodes. CT/CT cervical spine wo IV con IMPRESSION: No acute fracture or trauma-related listhesis. Kyphotic deformity apex at C5. Fleischner guidelines were followed. Electronically signed by: Jayce Diallo MD 10/12/2024 01:08 PM EDT RP Dictated By: Jayce Lyon MD Signed By: Electronically signed by Jayce Roca MD 10/12/24 1308 Radiology Impression Discussion of test interpretation with radiology: I have reviewed the radiologist's reading. Prescription Management I considered prescription management with: Pain Medication (patient prescribed pain medication) Discharge Plan Discharge Clinical Impression: Cervical strain Patient Disposition: Home, Self-Care Instructions: Cervical Strain (DC) Additional Instructions: Your CT scan was reassuring there is no EMERGENT cause for your symptoms. I believe your symptoms are secondary to a muscle spasm vs. sprain of the area. Take the muscle relaxer and steroid as I've prescribed. IF you are prescribed home medications and/or you are taking over the counter medications at home - it is very important you continue to do so as prescribed / directed unless told otherwise. Follow up with your primary care provider. Return to the emergency department immediately if your symptoms worsen or if you develop any numbness, tingling, dizziness, shortness of breath, difficulty breathing, chest pain, blurry vision, loss of vision, nausea, vomiting, abdominal pain, fever, chills, back pain, or any other complaints. Please see the information below about our Patient Portal. If you are not yet enrolled in the [facility] Patient Portal, you will receive an enrollment email invitation following your visit to any [facility] setting. You may also self-enroll in the Patient Portal by visiting our website: [email or web address] The following information is required to access the Patient Portal: - Your [facility] Medical Record Number - Your personal home email address (must match what is in your electronic medical record, Registration staff can assist with this) - Name - Date of Capabilities of the Patient Portal: - Message some providers - View upcoming appointments - Access your health summary, medical history, and visit history - View current conditions and allergies - View procedure and lab results - View your medications, including guidelines, side effects, and precautions - Complete pre-appointment questionnaires requested by your provider - Ready summary reports of your office visits and procedures To access the Patient Portal Mobile [employer], follow these directions: - Search [employer] in the [employer] Store or [employer] - Download the Jayda - Search for [facility] - Enter your login/password Prescriptions: New cyclobenzaprine 5 mg tablet 5 mg PO TID PRN (Reason: muscle spasm) 7 Days Qty: 21 0RF prednisone 20 mg tablet 20 mg PO DAILY 7 Days Qty: 7 0RF No Action sumatriptan succinate 25 mg tablet 25 mg PO Q2-4H PRN (Reason: migraine headache) 30 Days Qty: 9 0RF Rx Instructions: do not exceed 8 doses per 24 hrs levothyroxine 100 mcg tablet 100 mcg PO DAILY Qty: 30 6RF cholecalciferol (vitamin D3) 125 mcg (5,000 unit) capsule 125 mcg PO DAILY Qty: 90 1RF Referrals: Melody Rowan MD [Primary Care Provider, Internal Medicine] Stand Alone Forms: Work/School Release Interventions: ED Discharge Assessment Last Done: 10/12/24 17:14 Discharge Date/Time: 10/12/24 17:15 Print Language: [place]
[2024-10-12 17:14] VITALS: BP 132/64; PULSE 78; RESP 18; TEMP 36.4; O2SAT 98
== END 2024-10-12 17:15 | disposition home or self-care (01) ==
PROVIDERS: Emergency Provider Emergency Medicine; PCP Internal Medicine
DX: S16.1XXA Strain of muscle, fascia and tendon at neck level, initial encounter (principal); X58.XXXA Exposure to other specified factors, initial encounter; M54.89 Other dorsalgia; Y93.89 Activity, other specified; Y92.89 Other specified places as the place of occurrence of the external cause; Y99.8 Other external cause status; Z79.899 Other long term (current) drug therapy
CPT/HCPCS: 72125; 99282; 99284

== ENCOUNTER → 2024-10-12 12:40 | Outpatient (BNV) | payer OTHER, SELFPAY | PROVIDERS: PCP Internal Medicine; Visit Provider Radiology Diagnostic Radiology | DX: M54.2 Cervicalgia (principal) | CPT/HCPCS: 72125 ==

== ENCOUNTER 2024-11-21 10:38 | Outpatient (REF) | payer OTHER, SELFPAY ==
[2024-11-21 10:48] LABS: MANUAL DIFF FLAG NO
[2024-11-21 11:07] LABS: Hematocrit 35.6 % (37.0-47.0); Hemoglobin 11.9 g/dl (12.0-16.0); Imm Gran Abs Auto 0.04 X10*3/uL (0.00-0.03); Imm Gran Pct Auto 0.8 % (0.0-0.4); Lymphocytes Absolute Auto 1.6 X10*3/uL (1.2-4.9); Mean Corpuscular HGB Conc 33.4 g/dl (31.0-35.0); Mean Corpuscular Hemoglobin 31.7 pg (27.0-33.0); Mean Corpuscular Volume 94.9 fL (80.0-98.0); NRBC Abs Auto 0.000 X10*3/uL (0.0-0.012); NRBC Pct Auto 0.0 /100WBC (0.0-0.2); Platelet Count 294 X10*3/uL (160-400); Red Blood Count 3.75 X10*6/uL (4.20-5.50); White Blood Count 4.9 X10*3/uL (4.8-10.8)
[2024-11-21 11:32] LABS: Alanine Aminotransferase 17 U/L (0-31); Albumin Level 3.7 g/dL (3.5-5.0); Alkaline Phosphatase 51 U/L (39-117); Anion Gap 9 (12-20); Aspartate Amino Transferase 18 U/L (5-31); Blood Urea Nitrogen 11 mg/dL (9-16); Calcium 8.5 mg/dL (8.4-10.2); Carbon Dioxide 24 mmol/L (22-29); Chloride 110 mmol/L (96-108); Estimated Glomerular Filt Rate > 60; Potassium 4.1 mmol/L (3.3-5.1); Sodium 139 mmol/L (135-145); Total Protein 6.3 g/dL (6.5-8.0)
== END 2024-11-21 10:39 | disposition home or self-care (01) ==
LOC: HO.LAB 10:38
PROVIDERS: PCP Internal Medicine; Visit Provider Internal Medicine
DX: R73.03 Prediabetes (principal); D64.9 Anemia, unspecified
CPT/HCPCS: 36415; 80053; 85025

== ENCOUNTER 2025-02-08 14:24 | Outpatient (AMB) | payer OTHER, SELFPAY ==
[2025-02-08 14:40] VITALS: BP 128/74; PULSE 78; TEMP 36.2; O2SAT 99; BMI 35.7
--- NOTE | 2025-02-08 14:40 | A.OFFPC_ITS ---
Vital Signs 02/08/25 14:40 Height 5 ft Weight 183 lb BMI 35.7 BP 128/74 Blood Pressure Location Lt brachial Position Sitting Pulse 78 Pulse Source Pulse Oximeter Temp 97.1 F Temp Source Temporal Artery Scan Pulse Oximetry (%) 99 Oxygen Delivery Method Room Air Intake Visit Reasons: Annual Exam Meringuer Required: No Accompanied by: Self / Same As Patient Allergies No Known Allergies (No Known Allergies*) Allergy (Verified 02/08/25 14:54) Medication List - Last Reconciled 02/08/25 by Melody Carrizales MD cholecalciferol (vitamin D3) 125 mcg PO DAILY levothyroxine 100 mcg PO DAILY sumatriptan succinate 25 mg PO Q2-4H PRN 30 days Tobacco use date assessed: 02/08/25 Dental Screening Dental Screen Date: 02/08/25 Did you have a dental visit in the last 12 months?: Yes Did you have a dental problem in the last 6 months where you did not have access to dental care?: No HPI HPI Comments History of Present Illness Details The patient is a 34-year-old female presenting for an annual physical exam. She has no known medication allergies. Her current medications include vitamin D, levothyroxine 100 mcg for hypothyroidism which was last checked in November and was normal, and sumatriptan for migraines. She has no history of previous surgeries. The patient has a history of depression and continues with counseling but does not see a psychiatrist. She denies suicidal ideation. Her depression worsened two months ago after she had a spontaneous . She was prescribed sertraline (Zoloft), but stopped taking it a week ago due to side effects, which included pain in her lower back, a sensation of cold and trembling, and a loss of the sensation of urination. She also reports new onset leg pain and habitually dry skin on her feet. Regarding her family history, her father has hypertension, and her mother has diabetes and depression. The patient has a history of smoking but has quit, and she drinks wine on special occasions. [facility] Medical History (Updated 02/08/25 @ 15:13 by Melody Carrizales MD) Hx of abnormal cervical Pap smear Well woman exam with routine gynecological exam Screen for sexually transmitted diseases Cervical cancer screening Obesity (BMI 30.0-34.9) Adult general medical exam Injury of right hand Right hand pain Chills Myalgia Sinus pain Chest congestion Cough Vomiting Fatigue COVID-19 Nausea Restless leg syndrome Shortness of breath Vitamin D deficiency Hypothyroidism Vitamin B 12 deficiency Surgical History No pertinent past surgical history Family History Father Essential hypertension Mother Diabetes Depression Sister Gestational diabetes Maternal Grandmother Colon cancer Maternal Grandfather Colon cancer Maternal Aunt Breast cancer Social History Household Members: Children Housing: Apartment Are you a primary childcare provider to a significant other at home: No Do you presently have visiting nurse or other home services: No Alcohol intake: current Alcohol intake frequency: holidays/special occasions only Alcohol type: wine and other Patient Tobacco Use Status: Former Tobacco user Tobacco use type: Cigarette e-Cigarette/Vaping Use: Never Used Second Hand Smoke Exposure: No service: No Current occupational status: employed Current occupation: [employer] Current occupational exposures/hazards: No Cognitive needs: No Hearing needs: No Vision needs: Yes Female Reproductive History Menstrual Age of Menarche: 14 Questionnaire PHQ-9 Over the last 2 weeks, how often have you been bothered by any of the following problems? 1. Little interest or pleasure in doing things: nearly every day 2. Feeling down, depressed, or hopeless: nearly every day 3. Trouble falling or staying asleep, or sleeping too much: more than half the days 4. Feeling tired or having little energy: nearly every day 5. Poor appetite or overeating: several days 6. Feeling bad about yourself - or that you are a failure or have let yourself or your family down: several days 7. Trouble concentrating on things, such as reading the newspaper or watching television: more than half the days 8. Moving or speaking so slowly that other people could have noticed. Or the opposite - being so fidgety or restless that you have been moving around a lot more than usual: more than half the days 9. Thoughts that you would be better off or of hurting yourself in some way: not at all Total score: 17 Depression Screening Interpretation: Positive (no suicidal thoughts) Depression Screening Follow-up: Existing condition, Community Mental Health Worker F/U and Follow-up Visit Requested Depression Screening Done: Yes 25415 - PHQ-9 Billing: Yes Source: Developed by Drs. Alex Johnson, Hanh Clark, Marcus Pedro and colleagues, with an educational liborio from [employer]. Thrive Questionnaire Date Thrive assessed: 01/29/24 I am a: Patient What is your living situation today?: I have a steady place to live Within the past 12 months, did the food you bought not last and you didn't have the money to get more?: Never true Within the past 12 months, did you worry whether your food would run out before you got money to buy more?: Never true Do you have trouble paying for medicines?: No Do you have trouble getting transportation to medical appointments?: No Do you have trouble paying your heating and electricity bill?: No Do you have trouble taking care of your child, family member or friend?: No Do you have trouble with day-to-day activities such as bathing, preparing meals, shopping, managing finances, etc.?: No Are you currently unemployed and looking for a job?: No Are you interested in more education?: Yes Please select the resources that you would like help with: Housing/[facility], Utilities, Job search/training and Education Currently or been in a relationship where the following occur: I choose not to answer THRIVE Score: 0 AUDIT C Alcohol Use Questionnaire (AUDIT-C) 1. How often do you have a drink containing alcohol?: Monthly or less 2. How many drinks containing alcohol do you have on a typical day when you are drinking?: 1 or 2 3. How often do you have six or more drinks on one occasion?: Never Total Score: 1 Score Reviewed/Action Taken: No KATIE-7 AMB Questionnaire KATIE-7 Date KATIE - 7 assessed: 07/10/23 Feeling nervous, anxious, or on edge: 3 = Nearly every day Not being able to stop or control worryin = Nearly every day Worrying too much about different things: 3 = Nearly every day Trouble relaxin = Nearly every day Being so restless that it is hard to sit still: 2 = More than half the days Becoming easily annoyed or irritable: 2 = More than half the days Feeling afraid as if something awful might happen: 1 = Several days Total KATIE-7 score (0-4 normal; 5-9 mild; 10-14 moderate; 15-21 severe): 17 Source: Developed by Drs. Alex Johnson, Hanh Clark, Marcus Pedro and colleagues, with an educational liborio from [employer]. KATIE-7 Assessment Billing KATIE-7 Assessment Tool: KATIE-7 Assessment 46258 Review of Systems Const All systems reviewed & are unremarkable except as noted in HPI and below Card Denies chest pain at rest, Denies chest pain with activity, Denies edema, Denies irregular heart rhythm, Denies claudication, Denies dyspnea, Denies dyspnea on exertion, Denies orthopnea, Denies paroxysmal nocturnal dyspnea and Denies slow heart rate Resp Denies cough, Denies dyspnea and Denies dyspnea on exertion GI Denies abdominal pain, Denies change in bowel habits, Denies excessive flatus, Denies nausea and Denies vomiting Denies urinary incontinence, Denies urinary hesitancy and Denies urinary urgency Physical exam (Primary Care) Vital Signs: Last Vital Signs Temp 97.1 F 02/08/25 14:40 Pulse 78 02/08/25 14:40 BP 128/74 02/08/25 14:40 Pulse Ox 99 02/08/25 14:40 Oxygen Delivery Method Room Air 02/08/25 14:40 BMI result Body Mass Index 35.7 BMI Assessment/Plan discussion: High BMI High, discussed plan: lifestyle, weight reduction, dietary and physical activity Tobacco/Smoking Status: Tobacco use Status Tobacco use date assessed 02/08/25 02/08/25 14:41 Patient Tobacco Use Status Former Tobacco user 02/08/25 14:41 Tobacco use type Cigarette 02/08/25 14:41 e-Cigarette/Vaping Use Never Used 02/08/25 14:41 PHQ-9: PHQ-9 Score PHQ-9: Total score 17 02/08/25 14:41 Depression Screening Interpretation: Positive (no suicidal thoughts) Depression Screening Follow-up: Existing condition, Community Mental Health Worker F/U and Follow-up Visit Requested Thrive Assessment: Date of Thrive Assessment Date Thrive assessed 01/29/24 02/08/25 14:41 Currently or been in a relationship where the following occur: I choose not to answer HENTN Head: Yes normal to inspection, Yes normocephalic and Yes atraumatic Ears: external ears normal Eyes General: appearance normal, both eyes and all related structures Eyelids: Yes eyelids normal Conjunctivae: conjunctivae normal Neck Neck: Yes normal visual inspection and Yes supple Resp Effort & Inspection: normal respiratory effort Auscultation: clear to auscultation bilaterally Cardio Jugular venous distension: no JVD Rate: regular rate Rhythm: regular rhythm Heart sounds: S1 normal heart sound present and S2 normal heart sound present GI Inspection: Yes normal to inspection Palpation (GI): Soft to palpation and nontender Auscultation: normal bowel sounds Skin General skin exam: no rashes or lesions noted Neuro General: no focal motor deficits Extrem General: Yes full ROM Psych Appearance: grossly normal Coding Level of Care Code Est Pt Level 3 (94312) Est Pt Prev Care 18-39y(74970) Diagnoses Physical exam Z00.00 Lumbar pain M54.50 History of multiple miscarriages N96 Acquired hypothyroidism E03.9 Hypothyroidism type: acquired 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 Additional Codes PHQ-9 - 33179 - PHQ-9 Billing: Yes ([id number]) KATIE-7 Assessment Billing - KATIE-7 Assessment Tool: KATIE-7 Assessment 49249 ([id number]) Time Spent (min) 35 Assessment & Plan Assessment & Plan (1) Physical exam: Code(s): Z00.00 - Encounter for general adult medical examination without abnormal findings Category: Medical (2) Lumbar pain: Code(s): M54.50 - Low back pain, unspecified Category: Medical (3) History of multiple miscarriages: Code(s): N96 - Recurrent loss Category: Medical (4) Hypothyroidism: Code(s): E03.9 - Hypothyroidism, unspecified Category: Medical Qualifiers: Hypothyroidism type: acquired Qualified Code(s): E03.9 - Hypothyroidism, unspecified (5) Moderate major depression: Code(s): F32.1 - Major depressive disorder, single episode, moderate Category: Medical Plan Plan 1. Physical exam physical exam Repeat in a year. 2. Depression The patient reports worsening depression following a recent loss. She stopped taking sertraline one week ago due to side effects, including back pain and changes in urinary sensation. Will prescribe a different, low-dose antidepressant to be taken at bedtime, which may also help with sleep. A 30-day supply will be sent to her preferred pharmacy. 3. Back Pain The patient reports lower back pain with associated cold and trembling sensations, which started while taking sertraline. Kidney stones were considered, but the patient denies a history of them. Given that she just stopped the medication, will observe for spontaneous improvement. An X-ray of the back will be ordered to check for any vertebral abnormalities. 4. Hypothyroidism The patient takes levothyroxine 100 mcg daily. Her thyroid levels were normal on her last check in November. Will order a new lab test to check her thyroid function. 5. History of multiple miscarriages Labs ordered. Orders: Orders Vitamin D 25-OH Total Today E55.9 - Vitamin D deficiency, unspecified Thyroid Stimulating Hormone Today E03.9 - Hypothyroidism, unspecified Lupus Anticoagulant Panel Today N96 - Recurrent loss XR lumbar spine 2-3V Today M54.50 - Low back pain, unspecified Referrals Psychiatry Referral F32.1 - Major depressive disorder, single episode, moderate Medications: New venlafaxine ER 37.5 mg PO BEDTIME 30 caps 0RF 30 days Refilled levothyroxine 100 mcg PO DAILY 30 tabs 6RF E03.9 - Hypothyroidism, unspecified cholecalciferol (vitamin D3) 125 mcg PO DAILY 90 caps 1RF E03.9 - Hypothyroidism, unspecified levothyroxine 100 mcg PO DAILY 30 tabs 6RF E03.9 - Hypothyroidism, unspecified sumatriptan succinate do not exceed 8 doses per 24 hrs 25 mg PO Q2-4H PRN 9 tabs 0RF migraine headache 30 days E03.9 - Hypothyroidism, unspecified cholecalciferol (vitamin D3) 125 mcg PO DAILY 90 caps 1RF E03.9 - Hypothyroidism, unspecified
--- OUTSIDE RECORDS SUMMARY | 2025-02-08 23:22 | XMS_ITS | Clinical Summary ---
Author Organization [employer] Address [address] [place] [address] [address] [place] [address] Care Team Providers Care Blasting Entryman Name Role Phone Unavailable Primary Care Provider [...] nerve fibers of optic disc 06/22/2018 Immunizations Immunization Administration Dates Next Due DTaP [...] Use Screening 2003 Family Planning (PISQ) 06/06/2006 HPV Vaccines (1 - 3-dose series) 06/06/2006 Hepatitis C Screening 06/06/2009 Hepatitis B Vaccines (1 of 3 - 19+ 3-dose series) 06/06/2010 Pap Smear 06/06/2012 Cervical Cancer Screening 06/06/2021 HPV/Cotest 06/06/2021 COVID-19 Vaccine ( - 2024-2 6 season) 2024 Influenza Vaccine (#1) 2024 12/03/2017 Tobacco Screening 04/07/2025 04/07/2024 DTaP/Tdap/Td Vaccines [...] Years) and At-Risk Patients (6 to 49) Years Aged Out No longer eligible b ased on patient's age to complete this topic RSV under 20 months Aged Out No longe r eligible based on patient's age to complete this topic Rotavirus Vaccines Aged Out No longer eligible based on patient's age to complete this topic Insurance [facility] [facility] [employer]
== END 2025-02-08 15:13 | disposition home or self-care (01) ==
LOC: HO.HMCH 14:25
PROVIDERS: PCP Internal Medicine; Visit Provider Internal Medicine
DX: Z00.00 Encounter for general adult medical examination without abnormal findings (principal); F32.1 Major depressive disorder, single episode, moderate; M54.50 Low back pain, unspecified; N96 Recurrent pregnancy loss; E03.9 Hypothyroidism, unspecified

== ENCOUNTER 2025-02-08 14:24 | Outpatient (REF) | payer OTHER, SELFPAY ==
--- NOTE | ~2025-02-08 | XR_ITS ---
EXAMINATION: XR LUMBOSACRAL SPINE CLINICAL INFORMATION: M54.50 - Low back pain, unspecified COMPARISON: X-ray 01/16/2019 TECHNIQUE: Three views of the lumbosacral spine. FINDINGS: No evidence of acute fracture or subluxation. Small chronic ossification anterior to the L5 vertebral body, unchanged. Disc spaces are maintained. No suspicious bony lesion. SI joints are symmetric. No abnormal soft tissue calcification. XR/XR lumbar spine 2-3V IMPRESSION: No acute findings Electronically signed by: Balta Carmichael MD 02/09/2025 03:31 PM EST
[2025-02-08 18:19] LABS: Thyroid Stimulating Hormone 54.58 uIU/mL (0.32-4.0)
== END 2025-02-08 14:25 | disposition home or self-care (01) ==
LOC: HO.LAB 14:24
PROVIDERS: PCP Internal Medicine; Visit Provider Internal Medicine
DX: Z00.00 Encounter for general adult medical examination without abnormal findings (principal); N96 Recurrent pregnancy loss; E55.9 Vitamin D deficiency, unspecified; E03.9 Hypothyroidism, unspecified; M54.50 Low back pain, unspecified; F32.1 Major depressive disorder, single episode, moderate
CPT/HCPCS: 36415; 72100; 82306; 84443; 85597; 85598; 85613; 85730; 96127; 99212; 99395